=== PATIENT | female | born 1985 | race African-American/Black ===

== ENCOUNTER 2017-08-07 16:54 | Emergency (ER) | payer BC, OTHER ==
--- NOTE | 2017-08-07 17:31 | EDM.PDOC ---
ED HPI GENERAL MEDICAL PROBLEM - General Chief Complaint: Laceration Stated Complaint: SORE LT THUMB Time Seen by Provider: 08/07/17 16:56 Source of Information: Reports: Patient History Limitations: Reports: No Limitations - History of Present Illness INITIAL COMMENTS - FREE TEXT/NARRATIVE: HISTORY AND PHYSICAL: History of present illness: Patient is a 31-year-old female who presents to the emergency room today with complaints of a laceration to her left thumb. Laceration is from a knife that she was using while cutting up food yesterday around 10 AM. This laceration is over 24 hours old area and proximately 0.5 cm in length along the dorsal aspect of mid thumb. No current bleeding, sign of infection, or swelling. Patient is currently 5 months . Denies any related complications such as cramping, vaginal bleeding, discharge. Review of systems: As per history of present illness and below otherwise all systems reviewed and negative. Past medical history: As per history of present illness and as reviewed below otherwise noncontributory. Surgical history: As per history of present illness and as reviewed below otherwise noncontributory. Social history: No reported history of drug or alcohol abuse. Family history: As per history of present illness and as reviewed below otherwise noncontributory. Physical exam: Gen.: Well-developed and well-nourished 31-year-old female. Able to speak in full sentences without shortness of breath. Alert and oriented. HEENT: Atraumatic, normocephalic, pupils reactive, negative for conjunctival pallor or scleral icterus, mucous membranes moist, throat clear, neck supple, nontender, trachea midline. Lungs: Clear to auscultation, breath sounds equal bilaterally. Heart: S1S2, regular rate and rhythm Abdomen: Soft, nondistended, nontender. Negative for masses. Negative for costovertebral tenderness. Pelvis: Stable nontender. Genitourinary: Deferred. Rectal: Deferred. Skin: 0.25 cm laceration to the left dorsal aspect of the mid thumb. This laceration is greater than 24 hours old. Has no signs of infection at this time. Wound appears clean, superficial. Extremities: Atraumatic. Neurovascular unremarkable. Neuro: Awake, alert, oriented. Cranial nerves II through XII unremarkable. Cerebellum unremarkable. Motor and sensory unremarkable throughout. Exam nonfocal. Diagnostics: [] Therapeutics: Wound care, dressing. Impression: Laceration Plan: 1. Please monitor for signs of infection such as but not limited to redness and swelling, drainage from the site, fever or chills. Since this laceration is greater than 24 hours old unable to suture. No indication for an antibiotic at this time. 2. Follow-up with your primary care provider in the next 1-2 days. Return to the ED as needed as discussed. Definitive disposition and diagnosis as appropriate pending reevaluation and review of above. 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 ED EXAM, SKIN/RASH Exam: See Below (See dictation) Course - Vital Signs Last Recorded V/S: Last Vital Signs Temp 36.4 C 08/07/17 16:54 Pulse 89 08/07/17 16:54 Resp 18 08/07/17 16:54 BP 116/73 08/07/17 16:54 Pulse Ox 98 08/07/17 16:54 - Orders/Labs/Meds Orders: Active Orders 24 hr Category Date Time Status Communication Order [RC] STAT Care 08/07/17 17:33 Ordered Bacitracin [Bacitracin Oint 1 GM] Med 08/07/17 17:33 Once 1 dose TOP ONETIME ONE Departure - Departure Time of Disposition: 17:31 Disposition: Home, Self-Care 01 Clinical Impression: Laceration - Discharge Information Referrals: Yuniel Oakes MD [Primary Care Provider] - Forms: ED Department Discharge Additional Instructions: My general discharge The following information is given to patients seen in the emergency department who are being discharged to home. This information is to outline your options for follow-up care. We provide all patients seen in our emergency department with a follow-up referral. The need for follow-up, as well as the timing and circumstances, are variable depending upon the specifics of your emergency department visit. If you don't have a primary care physician on staff, we will provide you with a referral. We always advise you to contact your personal physician following an emergency department visit to inform them of the circumstance of the visit and for follow-up with them and/or the need for any referrals to a consulting specialist. The emergency department will also refer you to a specialist when appropriate. This referral assures that you have the opportunity for follow-up care with a specialist. All of these measure are taken in an effort to provide you with optimal care, which includes your follow-up. Under all circumstances we always encourage you to contact your private physician who remains a resource for coordinating your care. When calling for follow-up care, please make the office aware that this follow-up is from your recent emergency room visit. If for any reason you are refused follow-up, please contact the [facility] Emergency Department at and asked to speak to the emergency department charge nurse. [facility] [address] [place] [phone] 1. Please monitor for signs of infection such as but not limited to redness and swelling, drainage from the site, fever or chills. Since this laceration is greater than 24 hours old unable to suture. No indication for an antibiotic at this time. 2. Follow-up with your primary care provider in the next 1-2 days. Return to the ED as needed as discussed. - My Orders Last 24 Hours: My Active Orders 08/07/17 17:33 Communication Order [RC] STAT Bacitracin [Bacitracin Oint 1 GM] 1 dose TOP ONETIME ONE - Assessment/Plan Last 24 Hours: My Active Orders 08/07/17 17:33 Communication Order [RC] STAT Bacitracin [Bacitracin Oint 1 GM] 1 dose TOP ONETIME ONE
[2017-08-07] MEDS ORDERED: Bacitracin Oint 1 GM U/D Packet TOP ONE (17:33)
[2017-08-07 17:55] VITALS: BP 109/76
== END 2017-08-07 17:59 | disposition home or self-care (01) ==
LOC: MW.ED 16:54
DX: O9A.219 Injury, poisoning and certain other consequences of external causes complicating pregnancy, unspecified trimester (principal); S61.012A Laceration without foreign body of left thumb without damage to nail, initial encounter; W26.0XXA Contact with knife, initial encounter
CPT/HCPCS: 99282

== ENCOUNTER 2017-12-03 05:34 | Inpatient (IN) | payer BC ==
[2017-12-03] MEDS ORDERED: Sodium Chloride 0.9% 2.5 ML Syringe FLUSH PRN (05:42)
[2017-12-03] MEDS ORDERED: Sodium Chloride 0.9% 10 ML Syringe FLUSH PRN (05:42)
[2017-12-03] MEDS ORDERED: Oxytocin/0.9 % Sodium Chloride 30 UNIT/500 ML BAG IV SCH (05:45)
[2017-12-03] MEDS ORDERED: Lactated Ringers 1,000 ML IV SCH ×2 (05:45→07:00)
[2017-12-03] MEDS ORDERED: Citric Acid/Sodium Citrate Solution 30 ML Cup PO SCH (05:45)
[2017-12-03] MEDS ORDERED: Succinylcholine/Normal Saline 200 MG/10 ML Syringe ONE (06:23)
[2017-12-03] MEDS ORDERED: fentaNYL 250 MCG/5 ML SDV ONE (06:23)
[2017-12-03] MEDS ORDERED: Midazolam 1 MG/ML 2 ML SDV ONE (06:23)
[2017-12-03] MEDS ORDERED: ceFAZolin/Dextrose,Iso-Osmotic 2 GM/50 ML Duplex Bag IV ONE (06:23)
[2017-12-03] MEDS ORDERED: Methylergonovine 0.2 MG/1 ML Amp ONE ×2 (06:23→07:46)
[2017-12-03] MEDS ORDERED: Oxytocin 10 Units/1 ML SDV ONE ×4 (06:23→07:04)
[2017-12-03] MEDS ORDERED: Propofol 200 MG/20 ML SDV ONE (06:23)
[2017-12-03] MEDS ORDERED: Carboprost Tromethamine 250 MCG/1 ML Amp ONE (06:23)
[2017-12-03] MEDS ORDERED: Ondansetron 4 MG/2 ML SDV ONE (06:24)
--- NOTE | 2017-12-03 06:25 | PCM.PREANE ---
Preanesthetic Assessment - Procedure Proposed Procedure: Emergent d/t bleeding and placenta previa - Anesthesia/Transfusion/Family Hx Anesthesia History: No Prior Anesthesia Family History of Anesthesia Reaction: No Intubation History: Unknown - Review of Systems General: No Symptoms Pulmonary: No Symptoms Cardiovascular: No Symptoms Gastrointestinal: Abdominal Pain Neurological: No Symptoms Other: Reports: None - Physical Assessment NPO Status Date: 12/03/17 NPO Status Time: 00:00 (bicitra given on way to OR) ASA Class: 2E Mental Status: Alert & Oriented x3 (pt does not speak good turkmen - most questions answered by significant other) Airway Class: Mallampati = 3 (pt does not voluntarily open wide) Dentition: Reports: Normal Dentition Thyro-Mental Finger Breadths: 3 Mouth Opening Finger Breadths: 3 ROM/Head Extension: Full Lungs: Clear to Auscultation, Normal Respiratory Effort Cardiovascular: Regular Rate, Regular Rhythm - Lab Values: Laboratory Last Values WBC 6.80 K/uL (4.0-11.0) 12/03/17 05:52 RBC 4.41 M/uL (4.30-5.90) 12/03/17 05:52 Hgb 11.6 g/dL (12.0-16.0) L 12/03/17 05:52 Hct 34.8 % (36.0-46.0) L 12/03/17 05:52 MCV 78.9 fL (80.0-98.0) L 12/03/17 05:52 MCH 26.3 pg (27.0-32.0) L 12/03/17 05:52 MCHC 33.3 g/dL (31.0-37.0) 12/03/17 05:52 RDW Std Deviation 48.2 fl (28.0-62.0) 12/03/17 05:52 RDW Coeff of Klaus 17 % (11.0-15.0) H 12/03/17 05:52 Plt Count 175 K/uL (150-400) 12/03/17 05:52 Nucleated RBC % 0.0 /100WBC 12/03/17 05:52 Nucleated RBCs # 0 K/uL 12/03/17 05:52 - Allergies Allergies/Adverse Reactions: Allergies Allergy/AdvReac Type Severity Reaction Status Date / Time No Known Allergies Allergy Verified 08/07/17 16:58 - Blood Blood Available: Yes Product(s) Available: PRBC (4 units being T&C right now) - Anesthesia Plan Pre-Op Medication Ordered: Antacids - Acknowledgements Anesthesia Type Planned: General Anesthesia (per Dr dominguez's determination of the emergent situation, he requests she go to sleep) Pt an Appropriate Candidate for the Planned Anesthesia: Yes Alternatives and Risks of Anesthesia Discussed w Pt/Guardian: Yes Pt/Guardian Understands and Agrees with Anesthesia Plan: Yes PreAnesthesia Questionnaire - Past Health History Medical/Surgical History: Denies 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 Surgical 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 Female Surgical History: Reports: Section - SUBSTANCE USE Smoking Status *Q: Never Smoker Second Hand Smoke Exposure: No Recreational Drug Use History: No - HOME MEDS Home Medications: Home Meds Iron 1 tab PO DAILY 02/27/16 [History] Vit No.124/Iron/FA [ Vitamin Tablet] 1 tab PO DAILY 02/27/16 [ History] - CURRENT (IN HOUSE) MEDS Current Meds: Current Medications Citric Acid/Sodium Citrate (Bicitra Solution) 30 ml PO .ONCE NOEMI Lactated Ringer's (Ringers, Lactated) 1,000 mls @ 500 mls/hr IV .BOLUS NOEMI Oxytocin/Sodium Chloride (Oxytocin 30 Unit/500 Ml-Ns) 30 unit in 500 mls @ 250 mls/hr IV TITRATE NOEMI Sodium Chloride (Saline Flush) 10 ml FLUSH ASDIRECTED PRN PRN Reason: Keep Vein Open Sodium Chloride (Saline Flush) 2.5 ml FLUSH ASDIRECTED PRN PRN Reason: Keep Vein Open
[2017-12-03] MEDS ORDERED: ePHEDrine 50 MG/ML SDV ONE (06:28)
[2017-12-03] MEDS ORDERED: Octyl 2-Cyanoacrylate 1 Tube ONE (06:30)
[2017-12-03] MEDS ORDERED: HYDROmorphone 2 MG/ML SDV ONE (06:36)
--- NOTE | 2017-12-03 06:47 | PCM.LDHP ---
L&D History of Present Illness - General Date of Service: 12/03/17 Admit Problem/Dx: Patient Status Order with Admit Dx/Problem 12/03/17 05:43 Patient Status [ADT] Routine Admission Diagnosis/Problem Admission Diagnosis/Problem section Source of Information: Patient History Limitations: Reports: No Limitations - History of Present Illness Improves with: Reports: None Worsens with: Reports: None Associated Symptoms: Reports: N - Related Data Allergies/Adverse Reactions: Allergies Allergy/AdvReac Type Severity Reaction Status Date / Time No Known Allergies Allergy Verified 08/07/17 16:58 Home Medications: Home Meds Iron 1 tab PO DAILY 02/27/16 [History] Vit No.124/Iron/FA [ Vitamin Tablet] 1 tab PO DAILY 02/27/16 [ History] Past Medical History - Past Health History Medical/Surgical History: Denies 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 Female Surgical History: Reports: Section Social & Family History - Family History Family Medical History: Noncontributory - Tobacco Use Smoking Status *Q: Never Smoker Second Hand Smoke Exposure: No - Recreational Drug Use Recreational Drug Use: No H&P Review of Systems - Review of Systems: Review Of Systems: See Below General: Reports: No Symptoms HEENT: Reports: No Symptoms Pulmonary: Reports: No Symptoms Cardiovascular: Reports: No Symptoms Gastrointestinal: Reports: No Symptoms Genitourinary: Reports: No Symptoms Musculoskeletal: Reports: No Symptoms Skin: Reports: No Symptoms Psychiatric: Reports: No Symptoms Neurological: Reports: No Symptoms Hematologic/Lymphatic: Reports: No Symptoms Immunologic: Reports: No Symptoms L&D Exam - Exam Exam: See Below - OB Specific Fundal Height In cm: 38 Contraction Intensity: Mild to Moderate Movement: Active Heart Tones: Present Presentation: Vertex - Exam General: Alert, Oriented HEENT: PERRLA, Conjunctiva Clear, EACs Clear, EOMI, Hearing Intact, Mucosa Moist & [place], Nares Patent, Normal Nasal Septum, Posterior Pharynx Clear, TMs Clear Neck: Supple, Trachea Midline Lungs: Clear to Auscultation, Normal Respiratory Effort Cardiovascular: Regular Rate, Regular Rhythm GI/Abdominal Exam: Normal Bowel Sounds, Soft, Non-Tender, No Organomegaly, No Distention, No Abnormal Bruit, No Mass, Pelvis Stable Rectal Exam: Normal Exam, Normal Rectal Tone Genitourinary: Normal external exam, Normal bimanual exam, Normal speculum exam Back Exam: Normal Inspection, Full Range of Motion Extremities: Normal Inspection, Normal Range of Motion, Non-Tender, No Pedal Edema, Normal Capillary Refill Skin: Warm, Dry, Intact Neurological: Cranial Nerves Intact, Reflexes Equal Bilateral Psychiatric: Alert, Normal Affect, Normal Mood - Patient Data Lab Results Last 24 hrs: Laboratory Results - last 24 hr 12/03/17 12/03/17 Range/Units 05:52 05:52 WBC 6.80 (4.0-11.0) K/uL RBC 4.41 (4.30-5.90) M/uL Hgb 11.6 L (12.0-16.0) g/dL Hct 34.8 L (36.0-46.0) % MCV 78.9 L (80.0-98.0) fL MCH 26.3 L (27.0-32.0) pg MCHC 33.3 (31.0-37.0) g/dL RDW Std Deviation 48.2 (28.0-62.0) fl RDW Coeff of Klaus 17 H (11.0-15.0) % Plt Count 175 (150-400) K/uL Nucleated RBC % 0.0 /100WBC Nucleated RBCs # 0 K/uL Blood Type O POSITIVE Antibody Screen NEGATIVE Crossmatch See Detail Result Diagrams: 12/03/17 05:52 Problem List Initiated/Reviewed/Updated: Yes Orders Last 24hrs: Active Orders 24 hr Category Date Time Status Patient Status [ADT] Routine ADT 12/03/17 05:43 Active Non Stress Test [RC] PER UNIT ROUTINE Care 12/03/17 05:43 Active Notify Provider Vital Signs [RC] PRN Care 12/03/17 05:45 Active Procedure Site Prep Instruct [RC] ASDIRECTED Care 12/03/17 05:43 Active Up ad Francesca [RC] ASDIRECTED Care 12/03/17 05:43 Active Verify Patient Consent Obtain [RC] ASDIRECTED Care 12/03/17 05:43 Active Vital Signs [RC] PER UNIT ROUTINE Care 12/03/17 05:43 Active RED BLOOD CELLS LP [BBK] Urgent Lab 12/03/17 05:52 Results TYPE AND SCREEN [BBK] Urgent Lab 12/03/17 05:52 Results Citric Acid/Sodium Citrate [Bicitra Solution] Med 12/03/17 05:45 Active 30 ml PO .ONCE Lactated Ringers [Ringers, Lactated] 1,000 ml Med 12/03/17 05:45 Active IV .BOLUS Oxytocin/0.9 % Sodium Chloride [Oxytocin 30 Unit/500 ML Med 12/03/17 05:45 Active -NS] 30 unit in 500 ml IV TITRATE Sodium Chloride 0.9% [Saline Flush] Med 12/03/17 05:42 Active 10 ml FLUSH ASDIRECTED PRN Sodium Chloride 0.9% [Saline Flush] Med 12/03/17 05:42 Active 2.5 ml FLUSH ASDIRECTED PRN Peripheral IV Insertion Adult [OM.PC] Routine Oth 12/03/17 05:43 Ordered Schedule Procedure [COMM] Per Unit Routine Oth 12/03/17 05:43 Ordered Resuscitation Status Routine Resus Stat 12/03/17 05:42 Ordered Medication Orders Citric Acid/Sodium Citrate (Bicitra Solution) 30 ml PO .ONCE NOEMI Lactated Ringer's (Ringers, Lactated) 1,000 mls @ 500 mls/hr IV .BOLUS NOEMI Oxytocin/Sodium Chloride (Oxytocin 30 Unit/500 Ml-Ns) 30 unit in 500 mls @ 250 mls/hr IV TITRATE NOEMI Sodium Chloride (Saline Flush) 10 ml FLUSH ASDIRECTED PRN PRN Reason: Keep Vein Open Sodium Chloride (Saline Flush) 2.5 ml FLUSH ASDIRECTED PRN PRN Reason: Keep Vein Open Assessment/Plan Comment:: IUP 36+ Plasenta previa actively bleeding had previous C/section we will do emergancy repeat C/Section
[2017-12-03] MEDS ORDERED: Bisacodyl 10 MG Supp RECTAL PRN (06:49)
[2017-12-03] MEDS ORDERED: diphenhydrAMINE 50 MG/ML SDV IVPUSH PRN (06:49)
[2017-12-03] MEDS ORDERED: Lanolin 100% Cream 7 GM Tube TOP PRN (06:49)
[2017-12-03] MEDS ORDERED: Acetaminophen/oxyCODONE 325-5 MG Tab PO PRN (06:49)
[2017-12-03] MEDS ORDERED: Ondansetron 4 MG/2 ML SDV IV PRN (06:49)
--- NOTE | 2017-12-03 06:49 | PCM.OPNOTE ---
- General Post-Op/Procedure Note Date of Surgery/Procedure: 12/03/17 Operative Procedure(s): Emergancy repeat C/ section. IUP36+ Plasenta previa. Post-Op Diagnosis: Same Anesthesia Technique: General ET Tube Primary Surgeon: Yuniel Oakes [employer] Vehicle [employer] Interpreter: Clarisse Bledsoe EBL in mLs: 900 Complications: None Condition: Good
[2017-12-03] MEDS ORDERED: fentaNYL 100 MCG/2 ML SDV IVPUSH PRN (06:53)
[2017-12-03] MEDS ORDERED: Ketorolac 30 MG/ML SDV IVPUSH SCH (07:00)
--- NOTE | 2017-12-03 07:54 | OR ---
SURGEON: uYniel Oakes MD DATE OF PROCEDURE: 12/03/2017 PREOPERATIVE DIAGNOSES: Intrauterine 36+ weeks, previous section, and bleeding placenta previa. POSTOPERATIVE DIAGNOSES: Intrauterine 36+ weeks, previous section, and bleeding placenta previa. OPERATION PERFORMED: Emergency low transverse section under general anesthesia. TONG SETTER: Clarisse Bledsoe CNM ANESTHESIA: Francine Campbell and Ambar Minaya ESTIMATED BLOOD LOSS: 1800 mL. COMPLICATIONS: None. FINDING: Male fetus. score reported to be 8 and 9. The patient had a posterior placenta previa. Normal uterus, tubes, and ovary. INDICATION FOR SURGERY: This patient is 32. She had a previous section. She is followed in our clinic. She is known to have posterior placenta previa. She is transported to Labor and Delivery today in active bleeding. At the time of the admission to Labor and Delivery, her vital sign was stable; however, she was trickling and bleeding and heart rate was normal, and we immediately called for emergency sections. We did type and cross for 4 units, and we transported the patient to the OR for emergency section. The hydrographic engineer, Dr. Noland, is notified and she is present at the time of the section. PROCEDURE IN DETAIL: The patient was brought to the OR, properly identified. The patient was prepped and draped in sterile fashion as usual with a Barkley catheter in the bladder and then general anesthesia administered and then low transverse skin incision above the scar is done, and the Nemo fascia and rectus fascia were opened in the direction of the incision. The 2 recti muscles were then peritoneal cavities entered. Bladder flap was raised in the usual manner pushing the bladder away from the lower uterine segment and then low transverse uterine incision was done. The fetus was in a vertex position, delivered and cried immediately, handed to the hydrographic engineer, Dr. Noland, who was present at the time of the delivery. Later on, the score reported to be 8 and 9. The placenta is confirmed to be posterior previa, and it was easily and removed without any problem and then repair of the lower uterine segment was done with 2-0 Vicryl continuous interlocking for hemostasis and then reperitonealization done with 3-0 Vicryl continuous then the peritoneal cavity evacuated completely from all blood and blood clot and closed with 3-0 Vicryl continuous. The rectus fascia was closed with #1 PDS double strand continuous then attention was paid at this time to the old scar, and the old scar did have rather large keloid, so we excised it without any problems and then the Nemo fascia after that is closed with 3-0 Vicryl and the skin closed with 3-0 Vicryl on a Michael needle in a subcuticular fashion. Instrument and sponge counts were correct. The patient tolerated the procedure well and went to recovery room in stable general condition. ALISHA MURRELL /[id number] [id number]
[2017-12-03] MEDS ORDERED: Tranexamic Acid 1,000 MG in Sodium Chloride 0.9% 100 ML IV ONE (07:57)
[2017-12-03] MEDS ORDERED: Calcium Gluconate 10% 1 GM/10 ML SDV IV ONE (08:41)
[2017-12-03] MEDS ORDERED: Furosemide 40 MG/4 ML VIAL IVPUSH ONE (08:41)
[2017-12-03 09:13] LABS: CHLORIDE,CL 108 mmol/L (98-110); SODIUM,NA 137 mmol/L (136-146)
--- NOTE | 2017-12-03 09:14 | PCM.SN ---
- Free Text/Narrative Note: upon moving patient to bed large amount of blood noted on the bed approx 1000 ml. Pt to PACU hypotensive medications given for BP support. Uterine massage - unable to palpate uterus, Ambar Minaya assist to palpate. OB nurse Rasheed called for assistance. Large amount of blood noted on Pads. Tachycardic and hypotensive. Dr Oakes called. 2 units of PRBC called for and infused. See additional orders from Asif Minaya and Dr Oakes and PACU charting. Pt stabalized in PACU and will transfer to ICU
--- NOTE | 2017-12-03 09:24 | PCM.POSTAN ---
POST ANESTHESIA ASSESSMENT - MENTAL STATUS Mental Status: Alert, Somnolent - VITAL SIGNS Pulse Rate: 132 SaO2: 100 Resp Rate: 16 Blood Pressure: 105/66 - RESPIRATORY Respiratory Status: Respiratory Rate WNL, Airway Patent, O2 Saturation Stable, Supplemental Oxygen - CARDIOVASCULAR CV Status: Pulse Rate WNL, Blood Pressure Stable - GASTROINTESTINAL GI Status: No Symptoms - PAIN Pain Score: 0 - POST OP HYDRATION Hydration Status: Adequate & Stable - OBSERVATIONS Free Text/Narrative:: transferring to ICU
[2017-12-03] MEDS ORDERED: Sodium Chloride 0.9% 2,000 ML IV STA (10:00)
[2017-12-03] MEDS ORDERED: Calcium Gluconate 10% 1 GM/10 ML SDV IVPUSH ONE (10:20)
[2017-12-03] MEDS: Sodium Chloride 0.9% 1,000 ML IV SCH ×2 (11:54→18:25)
[2017-12-03] MEDS ORDERED: Sodium Chloride 0.9% 1,000 ML IV SCH (12:00)
[2017-12-03 12:44] LABS: CHLORIDE,CL 114 mmol/L (98-110); SODIUM,NA 139 mmol/L (136-146)
[2017-12-03] MEDS: Docusate Sodium 100 MG Cap PO SCH ×2 (13:05→21:01)
[2017-12-03] MEDS: Acetaminophen 325 MG Tab PO PRN ×2 (14:43→19:43)
--- NOTE | 2017-12-03 16:01 | CR ---
EXAM DATE: 12/03/17 PATIENT'S AGE: 32 Patient: RUFUS SAWYER Facility: [place], [place] Site . Site : 1985 Study: XRay Chest [id number]/9/2018 9:12:38 AM Ordering Physician: Champ Brice Final Report: INDICATION: S/P MASSIVE BLOOD TRANSFUSION. STATUS POST . TECHNIQUE: Chest 1 view. COMPARISON: None FINDINGS: Cardiovascular and mediastinum: Heart size and vasculature are normal in caliber and appearance. Mediastinum is within normal limits. Lungs and pleural space: Lungs are clear. No sign of infiltrate or mass. No sign of pleural effusion. No pneumothorax. Bones and soft tissues: No significant findings. IMPRESSION: Unremarkable chest. Dictated by: Tom Anna MD @ 12/03/2017 09:30:15 (Electronic Signature) Report Signed by Proxy. RUSSELL
[2017-12-03] MEDS: Acetaminophen/oxyCODONE 325-5 MG Tab PO PRN (23:35)
[2017-12-04] MEDS: Sodium Chloride 0.9% 1,000 ML IV SCH ×2 (01:13→07:57)
[2017-12-04] MEDS: Acetaminophen/oxyCODONE 325-5 MG Tab PO PRN ×2 (04:27→20:56)
[2017-12-04 06:07] LABS: CHLORIDE,CL 111 mmol/L (98-110); SODIUM,NA 137 mmol/L (136-146)
[2017-12-04] MEDS: Acetaminophen 325 MG Tab PO PRN ×2 (08:29→16:14)
[2017-12-04] MEDS: Docusate Sodium 100 MG Cap PO SCH ×2 (08:29→20:56)
[2017-12-04] MEDS ORDERED: Sodium Chloride 0.9% 1,000 ML IV SCH (11:15)
--- NOTE | 2017-12-04 11:20 | PCM.SURGPN ---
- General Info Date of Service: 12/04/17 POD#: 1 Functional Status: Reports: Pain Controlled - Review of Systems General: Reports: No Symptoms HEENT: Reports: No Symptoms Pulmonary: Reports: No Symptoms Cardiovascular: Reports: No Symptoms Gastrointestinal: Reports: No Symptoms Genitourinary: Reports: No Symptoms Musculoskeletal: Reports: No Symptoms Skin: Reports: No Symptoms Neurological: Reports: No Symptoms Psychiatric: Reports: No Symptoms - Patient Data Vitals - Most Recent: Last Vital Signs Temp 36.6 C 12/04/17 08:00 Pulse 87 12/04/17 10:00 Resp 21 H 12/04/17 10:00 BP 134/69 12/04/17 10:00 Pulse Ox 95 12/04/17 10:00 Weight - Most Recent: 83.007 kg I&O - Last 24 Hours: Intake & Output 12/03/17 12/04/17 12/04/17 22:59 06:59 14:59 Intake Total 4262 1180 50 Output Total 655 530 375 Balance 3607 650 -325 Lab Results Last 24 Hrs: Laboratory Results - last 24 hr 12/03/17 12/03/17 12/03/17 Range/Units 05:52 05:52 05:52 WBC (4.0-11.0) K/uL RBC (4.30-5.90) M/uL Hgb (12.0-16.0) g/dL Hct (36.0-46.0) % MCV (80.0-98.0) fL MCH (27.0-32.0) pg MCHC (31.0-37.0) g/dL RDW Std Deviation (28.0-62.0) fl RDW Coeff of Klaus (11.0-15.0) % Plt Count (150-400) K/uL MPV (7.40-12.00) fL Neut % (Auto) (48.0-80.0) % Lymph % (Auto) (16.0-40.0) % Stanly % (Auto) (0.0-15.0) % Eos % (Auto) (0.0-7.0) % Baso % (Auto) (0.0-1.5) % Neut # (Auto) (1.4-5.7) K/uL Lymph # (Auto) (0.6-2.4) K/uL Stanly # (Auto) (0.0-0.8) K/uL Eos # (Auto) (0.0-0.7) K/uL Baso # (Auto) (0.0-0.1) K/uL Add Manual Diff Neutrophils % (Manual) (48.0-80.0) % Band Neutrophils % % Lymphocytes % (Manual) (16.0-40.0) % Monocytes % (Manual) (0.0-15.0) % Myelocytes % % Nucleated RBC % /100WBC Absolute Seg Neuts (1.4-5.7) Band Neutrophils # Lymphocytes # (Manual) (0.6-2.4) Monocytes # (Manual) (0.0-0.8) Absolute Myelocytes Nucleated RBCs # K/uL INR APTT (18.6-31.3) SEC Fibrinogen (215-411) mg/dL Sodium (136-146) mmol/L Potassium (3.5-5.1) mmol/L Chloride (98-110) mmol/L Carbon Dioxide (21-31) mmol/L BUN (6.0-23.0) mg/dL Creatinine (0.6-1.5) mg/dL Est Cr Clr Drug Dosing mL/min Estimated GFR (MDRD) ml/min Glucose (60-110) mg/dL Calcium (8.8-10.8) mg/dL Total Bilirubin (0.1-1.5) mg/dL AST (5-40) IU/L ALT (8-54) IU/L Alkaline Phosphatase (40-150) Total Protein (6.0-8.0) g/dL Albumin (3.5-5.0) g/dL Globulin (2.0-3.5) g/dL Albumin/Globulin Ratio (1.3-2.8) Blood Type O POSITIVE Cancelled Antibody Screen NEGATIVE Cancelled Crossmatch See Detail See Detail See Detail 12/03/17 12/03/17 12/03/17 Range/Units 05:52 12:10 12:10 WBC (4.0-11.0) K/uL RBC (4.30-5.90) M/uL Hgb (12.0-16.0) g/dL Hct (36.0-46.0) % MCV (80.0-98.0) fL MCH (27.0-32.0) pg MCHC (31.0-37.0) g/dL RDW Std Deviation (28.0-62.0) fl RDW Coeff of Klaus (11.0-15.0) % Plt Count (150-400) K/uL MPV (7.40-12.00) fL Neut % (Auto) (48.0-80.0) % Lymph % (Auto) (16.0-40.0) % Stanly % (Auto) (0.0-15.0) % Eos % (Auto) (0.0-7.0) % Baso % (Auto) (0.0-1.5) % Neut # (Auto) (1.4-5.7) K/uL Lymph # (Auto) (0.6-2.4) K/uL Stanly # (Auto) (0.0-0.8) K/uL Eos # (Auto) (0.0-0.7) K/uL Baso # (Auto) (0.0-0.1) K/uL Add Manual Diff Neutrophils % (Manual) (48.0-80.0) % Band Neutrophils % % Lymphocytes % (Manual) (16.0-40.0) % Monocytes % (Manual) (0.0-15.0) % Myelocytes % % Nucleated RBC % /100WBC Absolute Seg Neuts (1.4-5.7) Band Neutrophils # Lymphocytes # (Manual) (0.6-2.4) Monocytes # (Manual) (0.0-0.8) Absolute Myelocytes Nucleated RBCs # K/uL INR 1.21 APTT (18.6-31.3) SEC Fibrinogen 112 L (215-411) mg/dL Sodium 139 (136-146) mmol/L Potassium 4.0 (3.5-5.1) mmol/L Chloride 114 H (98-110) mmol/L Carbon Dioxide 20 L (21-31) mmol/L BUN 11 (6.0-23.0) mg/dL Creatinine 0.7 (0.6-1.5) mg/dL Est Cr Clr Drug Dosing 95.44 mL/min Estimated GFR (MDRD) > 60.0 ml/min Glucose 135 H (60-110) mg/dL Calcium 7.3 L (8.8-10.8) mg/dL Total Bilirubin (0.1-1.5) mg/dL AST (5-40) IU/L ALT (8-54) IU/L Alkaline Phosphatase (40-150) Total Protein (6.0-8.0) g/dL Albumin (3.5-5.0) g/dL Globulin (2.0-3.5) g/dL Albumin/Globulin Ratio (1.3-2.8) Blood Type Antibody Screen Crossmatch See Detail 12/03/17 12/03/17 12/03/17 Range/Units 12:10 12:10 16:05 WBC 10.45 (4.0-11.0) K/uL RBC 2.43 L (4.30-5.90) M/uL Hgb 7.7 L 6.9 L (12.0-16.0) g/dL Hct 22.2 L 19.8 L (36.0-46.0) % MCV 81.5 (80.0-98.0) fL MCH 28.4 (27.0-32.0) pg MCHC 34.8 (31.0-37.0) g/dL RDW Std Deviation 45.2 (28.0-62.0) fl RDW Coeff of Klaus 15 (11.0-15.0) % Plt Count 45 L 102 L (150-400) K/uL MPV 9.50 (7.40-12.00) fL Neut % (Auto) (48.0-80.0) % Lymph % (Auto) (16.0-40.0) % Stanly % (Auto) (0.0-15.0) % Eos % (Auto) (0.0-7.0) % Baso % (Auto) (0.0-1.5) % Neut # (Auto) (1.4-5.7) K/uL Lymph # (Auto) (0.6-2.4) K/uL Stanly # (Auto) (0.0-0.8) K/uL Eos # (Auto) (0.0-0.7) K/uL Baso # (Auto) (0.0-0.1) K/uL Add Manual Diff YES Neutrophils % (Manual) 49 (48.0-80.0) % Band Neutrophils % 37 % Lymphocytes % (Manual) 8 L (16.0-40.0) % Monocytes % (Manual) 5 (0.0-15.0) % Myelocytes % 1 % Nucleated RBC % 0.4 /100WBC Absolute Seg Neuts 5.1 (1.4-5.7) Band Neutrophils # 3.9 Lymphocytes # (Manual) 0.8 (0.6-2.4) Monocytes # (Manual) 0.5 (0.0-0.8) Absolute Myelocytes 0.1 Nucleated RBCs # 0 K/uL INR APTT (18.6-31.3) SEC Fibrinogen (215-411) mg/dL Sodium (136-146) mmol/L Potassium (3.5-5.1) mmol/L Chloride (98-110) mmol/L Carbon Dioxide (21-31) mmol/L BUN (6.0-23.0) mg/dL Creatinine (0.6-1.5) mg/dL Est Cr Clr Drug Dosing mL/min Estimated GFR (MDRD) ml/min Glucose (60-110) mg/dL Calcium (8.8-10.8) mg/dL Total Bilirubin (0.1-1.5) mg/dL AST (5-40) IU/L ALT (8-54) IU/L Alkaline Phosphatase (40-150) Total Protein (6.0-8.0) g/dL Albumin (3.5-5.0) g/dL Globulin (2.0-3.5) g/dL Albumin/Globulin Ratio (1.3-2.8) Blood Type Antibody Screen Crossmatch 12/03/17 12/03/17 12/03/17 Range/Units 16:05 22:16 22:16 WBC 8.83 (4.0-11.0) K/uL RBC 2.99 L (4.30-5.90) M/uL Hgb 8.6 L (12.0-16.0) g/dL Hct 24.5 L (36.0-46.0) % MCV 81.9 (80.0-98.0) fL MCH 28.8 (27.0-32.0) pg MCHC 35.1 (31.0-37.0) g/dL RDW Std Deviation 45.3 (28.0-62.0) fl RDW Coeff of Klaus 15 (11.0-15.0) % Plt Count 87 L (150-400) K/uL MPV 10.60 (7.40-12.00) fL Neut % (Auto) 77.4 (48.0-80.0) % Lymph % (Auto) 15.4 L (16.0-40.0) % Stanly % (Auto) 7.2 (0.0-15.0) % Eos % (Auto) 0.0 (0.0-7.0) % Baso % (Auto) 0.0 (0.0-1.5) % Neut # (Auto) 6.8 H (1.4-5.7) K/uL Lymph # (Auto) 1.4 (0.6-2.4) K/uL Stanly # (Auto) 0.6 (0.0-0.8) K/uL Eos # (Auto) 0.0 (0.0-0.7) K/uL Baso # (Auto) 0.0 (0.0-0.1) K/uL Add Manual Diff Neutrophils % (Manual) (48.0-80.0) % Band Neutrophils % % Lymphocytes % (Manual) (16.0-40.0) % Monocytes % (Manual) (0.0-15.0) % Myelocytes % % Nucleated RBC % 0.0 /100WBC Absolute Seg Neuts (1.4-5.7) Band Neutrophils # Lymphocytes # (Manual) (0.6-2.4) Monocytes # (Manual) (0.0-0.8) Absolute Myelocytes Nucleated RBCs # 0 K/uL INR 1.07 0.98 APTT 32.6 H 31.6 H (18.6-31.3) SEC Fibrinogen 177 L 242 (215-411) mg/dL Sodium (136-146) mmol/L Potassium (3.5-5.1) mmol/L Chloride (98-110) mmol/L Carbon Dioxide (21-31) mmol/L BUN (6.0-23.0) mg/dL Creatinine (0.6-1.5) mg/dL Est Cr Clr Drug Dosing mL/min Estimated GFR (MDRD) ml/min Glucose (60-110) mg/dL Calcium (8.8-10.8) mg/dL Total Bilirubin (0.1-1.5) mg/dL AST (5-40) IU/L ALT (8-54) IU/L Alkaline Phosphatase (40-150) Total Protein (6.0-8.0) g/dL Albumin (3.5-5.0) g/dL Globulin (2.0-3.5) g/dL Albumin/Globulin Ratio (1.3-2.8) Blood Type Antibody Screen Crossmatch 12/04/17 12/04/17 12/04/17 Range/Units 05:35 05:35 05:35 WBC 7.02 (4.0-11.0) K/uL RBC 2.59 L (4.30-5.90) M/uL Hgb 7.4 L (12.0-16.0) g/dL Hct 21.0 L (36.0-46.0) % MCV 81.1 (80.0-98.0) fL MCH 28.6 (27.0-32.0) pg MCHC 35.2 (31.0-37.0) g/dL RDW Std Deviation 45.4 (28.0-62.0) fl RDW Coeff of Klaus 15 (11.0-15.0) % Plt Count 81 L (150-400) K/uL MPV 10.30 (7.40-12.00) fL Neut % (Auto) 78.1 (48.0-80.0) % Lymph % (Auto) 14.1 L (16.0-40.0) % Stanly % (Auto) 7.7 (0.0-15.0) % Eos % (Auto) 0.0 (0.0-7.0) % Baso % (Auto) 0.1 (0.0-1.5) % Neut # (Auto) 5.5 (1.4-5.7) K/uL Lymph # (Auto) 1.0 (0.6-2.4) K/uL Stanly # (Auto) 0.5 (0.0-0.8) K/uL Eos # (Auto) 0.0 (0.0-0.7) K/uL Baso # (Auto) 0.0 (0.0-0.1) K/uL Add Manual Diff Neutrophils % (Manual) (48.0-80.0) % Band Neutrophils % % Lymphocytes % (Manual) (16.0-40.0) % Monocytes % (Manual) (0.0-15.0) % Myelocytes % % Nucleated RBC % 0.0 /100WBC Absolute Seg Neuts (1.4-5.7) Band Neutrophils # Lymphocytes # (Manual) (0.6-2.4) Monocytes # (Manual) (0.0-0.8) Absolute Myelocytes Nucleated RBCs # 0 K/uL INR APTT (18.6-31.3) SEC Fibrinogen 289 (215-411) mg/dL Sodium 137 (136-146) mmol/L Potassium 3.9 (3.5-5.1) mmol/L Chloride 111 H (98-110) mmol/L Carbon Dioxide 21 (21-31) mmol/L BUN 10 (6.0-23.0) mg/dL Creatinine 0.6 (0.6-1.5) mg/dL Est Cr Clr Drug Dosing 111.35 mL/min Estimated GFR (MDRD) > 60.0 ml/min Glucose 130 H (60-110) mg/dL Calcium 7.4 L (8.8-10.8) mg/dL Total Bilirubin 1.8 H (0.1-1.5) mg/dL AST 42 H (5-40) IU/L ALT 14 (8-54) IU/L Alkaline Phosphatase 59 (40-150) Total Protein 3.8 L (6.0-8.0) g/dL Albumin 2.0 L (3.5-5.0) g/dL Globulin 1.8 L (2.0-3.5) g/dL Albumin/Globulin Ratio 1.1 L (1.3-2.8) Blood Type Antibody Screen Crossmatch Med Orders - Current: Current Medications Acetaminophen (Tylenol) 325 - 650 mg PO Q4H PRN PRN Reason: Pain Last Admin: 12/04/17 08:29 Dose: 650 mg Bisacodyl (Dulcolax) 10 mg RECTAL .ONCE PRN PRN Reason: Constipation Citric Acid/Sodium Citrate (Bicitra Solution) 30 ml PO .ONCE NOEMI Diphenhydramine HCl (Benadryl) 25 mg IVPUSH Q6H PRN PRN Reason: Itching or Nausea Docusate Sodium (Colace) 100 mg PO BID [facility] Last Admin: 12/04/17 08:29 Dose: 100 mg Emollient Ointment (Lansinoh Hpa) 0 gm TOP ASDIRECTED PRN PRN Reason: Sore Nipples Fentanyl (Sublimaze) 50 mcg IVPUSH SEECOMMENT PRN PRN Reason: Pain (moderate 4-6) Lactated Ringer's (Ringers, Lactated) 1,000 mls @ 500 mls/hr IV .BOLUS NOEMI Oxytocin/Sodium Chloride (Oxytocin 30 Unit/500 Ml-Ns) 30 unit in 500 mls @ 250 mls/hr IV TITRATE NOEMI Lactated Ringer's (Ringers, Lactated) 1,000 mls @ 125 mls/hr IV ASDIRECTED NOEMI Sodium Chloride (Normal Saline) 1,000 mls @ 10 mls/hr IV ASDIRECTED [facility] Ibuprofen (Motrin) 800 mg PO Q8H PRN PRN Reason: mild pain or fever Ondansetron HCl (Zofran) 4 mg IV Q4H PRN PRN Reason: Nausea/Vomiting Oxycodone/Acetaminophen (Percocet 325-5 Mg) 1 tab PO Q4H PRN PRN Reason: Pain (moderate 4-6) Last Admin: 12/04/17 04:27 Dose: 1 tab Oxycodone/Acetaminophen (Percocet 325-5 Mg) 2 tab PO Q4H PRN PRN Reason: Pain (moderate 4-6) Sodium Chloride (Saline Flush) 10 ml FLUSH ASDIRECTED PRN PRN Reason: Keep Vein Open Sodium Chloride (Saline Flush) 2.5 ml FLUSH ASDIRECTED PRN PRN Reason: Keep Vein Open Discontinued Medications Calcium Gluconate (Calcium Gluconate) 1 gm IV ONETIME ONE Stop: 12/03/17 08:42 Last Admin: 12/03/17 08:44 Dose: 1 gm Calcium Gluconate (Calcium Gluconate) 1 gm IVPUSH ONETIME ONE Stop: 12/03/17 10:21 Last Admin: 12/03/17 11:07 Dose: 1 gm Carboprost Tromethamine (Hemabate Ds) Confirm Administered Dose 250 mcg .ROUTE .STK-MED ONE Stop: 12/03/17 06:24 Ephedrine Sulfate (Ephedrine Sulfate) Confirm Administered Dose 50 mg .ROUTE .STK-MED ONE Stop: 12/03/17 06:29 Fentanyl (Sublimaze) Confirm Administered Dose 250 mcg .ROUTE .STK-MED ONE Stop: 12/03/17 06:24 Furosemide (Lasix) 20 mg IVPUSH NOW ONE Stop: 12/03/17 08:42 Last Admin: 12/03/17 08:43 Dose: 20 mg Hydromorphone HCl (Dilaudid) Confirm Administered Dose 2 mg .ROUTE .STK-MED ONE Stop: 12/03/17 06:37 Tranexamic Acid 1,000 mg/ (Sodium Chloride) 110 mls @ 600 mls/hr IV ONETIME ONE Stop: 12/03/17 08:07 Last Admin: 12/03/17 14:03 Dose: Not Given Tranexamic Acid 1,000 mg/ (Sodium Chloride) 260 mls @ 32.5 mls/hr IV ONETIME ONE Stop: 12/03/17 18:44 Last Admin: 12/03/17 10:48 Dose: 32.5 mls/hr Sodium Chloride (Normal Saline) 2,000 mls @ 999 mls/hr IV NOW STA Stop: 12/03/17 12:00 Last Admin: 12/03/17 11:00 Dose: 999 mls/hr Sodium Chloride (Normal Saline) 1,000 mls @ 150 mls/hr IV ASDIRECTED [facility] Last Admin: 12/04/17 07:57 Dose: 150 mls/hr Sodium Chloride (Normal Saline) 1,000 mls @ 150 mls/hr IV ASDIRECTED [facility] Ketorolac Tromethamine (Toradol) 30 mg IVPUSH Q6H [facility] Stop: 12/04/17 07:01 Last Admin: 12/03/17 07:13 Dose: 30 mg Methylergonovine Maleate (Methergine) Confirm Administered Dose 0.2 mg .ROUTE .STK-MED ONE Stop: 12/03/17 06:24 Methylergonovine Maleate (Methergine) Confirm Administered Dose 0.2 mg .ROUTE .STK-MED ONE Stop: 12/03/17 07:47 Midazolam HCl (Versed 1 Mg/Ml) Confirm Administered Dose 2 mg .ROUTE .STK-MED ONE Stop: 12/03/17 06:24 Octyl Cyanoacrylate (Dermabond Advance) Confirm Administered Dose 1 applic .ROUTE .STK-MED ONE Stop: 12/03/17 06:31 Ondansetron HCl (Zofran) Confirm Administered Dose 4 mg .ROUTE .STK-MED ONE Stop: 12/03/17 06:25 Oxytocin (Pitocin) Confirm Administered Dose 10 unit .ROUTE .STK-MED ONE Stop: 12/03/17 06:24 Oxytocin (Pitocin) Confirm Administered Dose 10 unit .ROUTE .STK-MED ONE Stop: 12/03/17 06:24 Oxytocin (Pitocin) Confirm Administered Dose 10 unit .ROUTE .STK-MED ONE Stop: 12/03/17 06:24 Oxytocin (Pitocin) Confirm Administered Dose 20 unit .ROUTE .STK-MED ONE Stop: 12/03/17 07:05 Propofol (Diprivan 20 Ml) Confirm Administered Dose 200 mg .ROUTE .STK-MED ONE Stop: 12/03/17 06:24 Succinylcholine Chloride (Succinylcholine In Ns Pf) Confirm Administered Dose 200 mg .ROUTE .STK-MED ONE Stop: 12/03/17 06:24 Tranexamic Acid (Cyklokapron) Confirm Administered Dose 1,000 mg .ROUTE .STK- MED ONE Stop: 12/03/17 07:44 Tranexamic Acid (Cyklokapron) 1,000 mg IV ONETIME ONE Stop: 12/03/17 08:01 Last Admin: 12/03/17 13:57 Dose: 1,000 mg - Exam Wound/Incisions: Healing Well General: Alert, Oriented HEENT: Pupils Equal Neck: Supple Lungs: Clear to Auscultation, Normal Respiratory Effort Cardiovascular: Regular Rate, Regular Rhythm GI/Abdominal Exam: Normal Bowel Sounds, Soft, Non-Tender, No Organomegaly, No Distention, No Abnormal Bruit, No Mass, Pelvis Stable Extremities: Normal Inspection, Normal Range of Motion, Non-Tender, No Pedal Edema, Normal Capillary Refill Skin: Warm, Dry, Intact Neurological: No New Focal Deficit Psy/Mental Status: Alert, Normal Affect, Normal Mood - Problem List Review Problem List Initiated/Reviewed/Updated: Yes - My Orders Last 24 Hours: Active Orders 24 hr Category Date Time Status Clear Liquid Diet [DIET] Diet 12/04/17 Lunch Active HEMOGLOBIN/HEMATOCRIT,HH [HEME] Routine Lab 12/05/17 05:00 Ordered Acetaminophen [Tylenol] Med 12/03/17 14:04 Active 325 - 650 mg PO Q4H PRN Sodium Chloride 0.9% [Normal Saline] 1,000 ml Med 12/04/17 11:15 Ordered IV ASDIRECTED Arterial Line Discontinue [OM.PC] Routine Oth 12/04/17 11:09 Ordered Transfuse Red Blood Cells [COMM] Routine Oth 12/04/17 11:07 Ordered Medication Orders Acetaminophen (Tylenol) 325 - 650 mg PO Q4H PRN PRN Reason: Pain Last Admin: 12/04/17 08:29 Dose: 650 mg Admin: 12/03/17 19:43 Dose: 650 mg Admin: 12/03/17 14:43 Dose: 650 mg Bisacodyl (Dulcolax) 10 mg RECTAL .ONCE PRN PRN Reason: Constipation Citric Acid/Sodium Citrate (Bicitra Solution) 30 ml PO .ONCE NOEMI Diphenhydramine HCl (Benadryl) 25 mg IVPUSH Q6H PRN PRN Reason: Itching or Nausea Docusate Sodium (Colace) 100 mg PO BID NOEMI Last Admin: 12/04/17 08:29 Dose: 100 mg Admin: 12/03/17 21:01 Dose: 100 mg Admin: 12/03/17 13:05 Dose: Emollient Ointment (Lansinoh Hpa) 0 gm TOP ASDIRECTED PRN PRN Reason: Sore Nipples Fentanyl (Sublimaze) 50 mcg IVPUSH SEECOMMENT PRN PRN Reason: Pain (moderate 4-6) Lactated Ringer's (Ringers, Lactated) 1,000 mls @ 500 mls/hr IV .BOLUS NOEMI Oxytocin/Sodium Chloride (Oxytocin 30 Unit/500 Ml-Ns) 30 unit in 500 mls @ 250 mls/hr IV TITRATE NOEMI Lactated Ringer's (Ringers, Lactated) 1,000 mls @ 125 mls/hr IV ASDIRECTED NOEMI Sodium Chloride (Normal Saline) 1,000 mls @ 10 mls/hr IV ASDIRECTED NOEMI Ibuprofen (Motrin) 800 mg PO Q8H PRN PRN Reason: mild pain or fever Ondansetron HCl (Zofran) 4 mg IV Q4H PRN PRN Reason: Nausea/Vomiting Oxycodone/Acetaminophen (Percocet 325-5 Mg) 1 tab PO Q4H PRN PRN Reason: Pain (moderate 4-6) Last Admin: 12/04/17 04:27 Dose: 1 tab Admin: 12/03/17 23:35 Dose: 1 tab Oxycodone/Acetaminophen (Percocet 325-5 Mg) 2 tab PO Q4H PRN PRN Reason: Pain (moderate 4-6) Sodium Chloride (Saline Flush) 10 ml FLUSH ASDIRECTED PRN PRN Reason: Keep Vein Open Sodium Chloride (Saline Flush) 2.5 ml FLUSH ASDIRECTED PRN PRN Reason: Keep Vein Open - Assessment Assessment (Free Text/Narrative):: S/P emergency C/Section for bleeding Placenta previa and possible abruption. Her DIC satiation improving her clotting result are improving. adequate urin out put. - Plan Plan (Free Text/Narrative):: Will tranfuse 2 more unit of pack cells unit. Start lig diet, out of bed and transeching to regular post care.
[2017-12-04] MEDS: Ibuprofen 800 MG Tab PO PRN ×2 (11:38→19:10)
--- NOTE | 2017-12-04 15:30 | PCM48HPAN ---
Post Anesthesia Note - EVALUATION WITHIN 48HRS OF ANESTHETIC Vital Signs in Normal Range: Yes Patient Participated in Evaluation: Yes Respiratory Function Stable: Yes Airway Patent: Yes Cardiovascular Function Stable: Yes Hydration Status Stable: Yes Pain Control Satisfactory: Yes Nausea and Vomiting Control Satisfactory: Yes Mental Status Recovered: Yes - COMMENTS/OBSERVATIONS Free Text/Narrative:: Pt condition improved. DIC stabalizing and pt sitting in chair, pleasant and smiling. Denies any questions or problems related to anesthesia.
[2017-12-05] MEDS: Acetaminophen/oxyCODONE 325-5 MG Tab PO PRN ×3 (01:12→18:03)
[2017-12-05] MEDS: Ibuprofen 800 MG Tab PO PRN ×3 (03:37→20:53)
[2017-12-05 06:09] LABS: CHLORIDE,CL 111 mmol/L (98-110); SODIUM,NA 140 mmol/L (136-146)
[2017-12-05] MEDS: Docusate Sodium 100 MG Cap PO SCH ×2 (08:00→20:53)
[2017-12-05] MEDS: Acetaminophen 325 MG Tab PO PRN (08:01)
[2017-12-05] MEDS ORDERED: Sodium Chloride 0.9% 2.5 ML Syringe FLUSH PRN (10:36)
[2017-12-05] MEDS ORDERED: Sodium Chloride 0.9% 10 ML Syringe FLUSH PRN (10:36)
--- NOTE | 2017-12-05 10:53 | PCM.SURGPN ---
- General Info Date of Service: 12/05/17 POD#: 2 Functional Status: Reports: Pain Controlled - Review of Systems General: Reports: No Symptoms HEENT: Reports: No Symptoms Pulmonary: Reports: No Symptoms Cardiovascular: Reports: No Symptoms Gastrointestinal: Reports: No Symptoms Genitourinary: Reports: No Symptoms Musculoskeletal: Reports: No Symptoms Skin: Reports: No Symptoms Neurological: Reports: No Symptoms Psychiatric: Reports: No Symptoms - Patient Data Vitals - Most Recent: Last Vital Signs Temp 36.7 C 12/05/17 08:00 Pulse 102 H 12/04/17 19:22 Resp 18 12/05/17 09:00 BP 111/83 12/05/17 09:00 Pulse Ox 93 L 12/05/17 09:00 Weight - Most Recent: 83.007 kg I&O - Last 24 Hours: Intake & Output 12/04/17 12/05/17 12/05/17 22:59 06:59 14:59 Intake Total 2429 180 160 Output Total 930 335 115 Balance 1499 -155 45 Lab Results Last 24 Hrs: Laboratory Results - last 24 hr 12/03/17 12/03/17 12/05/17 Range/Units 05:52 05:52 05:20 WBC 7.38 (4.0-11.0) K/uL RBC 3.03 L (4.30-5.90) M/uL Hgb 8.9 L (12.0-16.0) g/dL Hct 25.4 L (36.0-46.0) % MCV 83.8 (80.0-98.0) fL MCH 29.4 (27.0-32.0) pg MCHC 35.0 (31.0-37.0) g/dL RDW Std Deviation 47.4 (28.0-62.0) fl RDW Coeff of Klaus 15 (11.0-15.0) % Plt Count 78 L (150-400) K/uL MPV 10.70 (7.40-12.00) fL Neut % (Auto) 75.8 (48.0-80.0) % Lymph % (Auto) 17.2 (16.0-40.0) % Daggett % (Auto) 6.5 (0.0-15.0) % Eos % (Auto) 0.4 (0.0-7.0) % Baso % (Auto) 0.1 (0.0-1.5) % Neut # (Auto) 5.6 (1.4-5.7) K/uL Lymph # (Auto) 1.3 (0.6-2.4) K/uL Daggett # (Auto) 0.5 (0.0-0.8) K/uL Eos # (Auto) 0.0 (0.0-0.7) K/uL Baso # (Auto) 0.0 (0.0-0.1) K/uL Nucleated RBC % 0.0 /100WBC Nucleated RBCs # 0 K/uL Sodium (136-146) mmol/L Potassium (3.5-5.1) mmol/L Chloride (98-110) mmol/L Carbon Dioxide (21-31) mmol/L BUN (6.0-23.0) mg/dL Creatinine (0.6-1.5) mg/dL Est Cr Clr Drug Dosing mL/min Estimated GFR (MDRD) ml/min Glucose (60-110) mg/dL Calcium (8.8-10.8) mg/dL Crossmatch See Detail See Detail 12/05/17 Range/Units 05:20 WBC (4.0-11.0) K/uL RBC (4.30-5.90) M/uL Hgb (12.0-16.0) g/dL Hct (36.0-46.0) % MCV (80.0-98.0) fL MCH (27.0-32.0) pg MCHC (31.0-37.0) g/dL RDW Std Deviation (28.0-62.0) fl RDW Coeff of Klaus (11.0-15.0) % Plt Count (150-400) K/uL MPV (7.40-12.00) fL Neut % (Auto) (48.0-80.0) % Lymph % (Auto) (16.0-40.0) % Daggett % (Auto) (0.0-15.0) % Eos % (Auto) (0.0-7.0) % Baso % (Auto) (0.0-1.5) % Neut # (Auto) (1.4-5.7) K/uL Lymph # (Auto) (0.6-2.4) K/uL Daggett # (Auto) (0.0-0.8) K/uL Eos # (Auto) (0.0-0.7) K/uL Baso # (Auto) (0.0-0.1) K/uL Nucleated RBC % /100WBC Nucleated RBCs # K/uL Sodium 140 (136-146) mmol/L Potassium 3.5 (3.5-5.1) mmol/L Chloride 111 H (98-110) mmol/L Carbon Dioxide 23 (21-31) mmol/L BUN 6 (6.0-23.0) mg/dL Creatinine 0.5 L (0.6-1.5) mg/dL Est Cr Clr Drug Dosing 133.62 mL/min Estimated GFR (MDRD) > 60.0 ml/min Glucose 95 (60-110) mg/dL Calcium 8.4 L (8.8-10.8) mg/dL Crossmatch Med Orders - Current: Current Medications Acetaminophen (Tylenol) 325 - 650 mg PO Q4H PRN PRN Reason: Pain Last Admin: 12/05/17 08:01 Dose: 650 mg Bisacodyl (Dulcolax) 10 mg RECTAL .ONCE PRN PRN Reason: Constipation Citric Acid/Sodium Citrate (Bicitra Solution) 30 ml PO .ONCE NOEMI Diphenhydramine HCl (Benadryl) 25 mg IVPUSH Q6H PRN PRN Reason: Itching or Nausea Docusate Sodium (Colace) 100 mg PO BID NOEMI Last Admin: 12/05/17 08:00 Dose: 100 mg Emollient Ointment (Lansinoh Hpa) 0 gm TOP ASDIRECTED PRN PRN Reason: Sore Nipples Fentanyl (Sublimaze) 50 mcg IVPUSH SEECOMMENT PRN PRN Reason: Pain (moderate 4-6) Lactated Ringer's (Ringers, Lactated) 1,000 mls @ 500 mls/hr IV .BOLUS [facility] Oxytocin/Sodium Chloride (Oxytocin 30 Unit/500 Ml-Ns) 30 unit in 500 mls @ 250 mls/hr IV TITRATE NOEMI Lactated Ringer's (Ringers, Lactated) 1,000 mls @ 125 mls/hr IV ASDIRECTED [facility] Ibuprofen (Motrin) 800 mg PO Q8H PRN PRN Reason: mild pain or fever Last Admin: 12/05/17 03:37 Dose: 800 mg Ondansetron HCl (Zofran) 4 mg IV Q4H PRN PRN Reason: Nausea/Vomiting Last Admin: 12/04/17 11:50 Dose: 4 mg Oxycodone/Acetaminophen (Percocet 325-5 Mg) 1 tab PO Q4H PRN PRN Reason: Pain (moderate 4-6) Last Admin: 12/05/17 01:12 Dose: 1 tab Oxycodone/Acetaminophen (Percocet 325-5 Mg) 2 tab PO Q4H PRN PRN Reason: Pain (moderate 4-6) Sodium Chloride (Saline Flush) 10 ml FLUSH ASDIRECTED PRN PRN Reason: Keep Vein Open Sodium Chloride (Saline Flush) 2.5 ml FLUSH ASDIRECTED PRN PRN Reason: Keep Vein Open Sodium Chloride (Saline Flush) 10 ml FLUSH ASDIRECTED PRN PRN Reason: Keep Vein Open Sodium Chloride (Saline Flush) 2.5 ml FLUSH ASDIRECTED PRN PRN Reason: Keep Vein Open Discontinued Medications Calcium Gluconate (Calcium Gluconate) 1 gm IV ONETIME ONE Stop: 12/03/17 08:42 Last Admin: 12/03/17 08:44 Dose: 1 gm Calcium Gluconate (Calcium Gluconate) 1 gm IVPUSH ONETIME ONE Stop: 12/03/17 10:21 Last Admin: 12/03/17 11:07 Dose: 1 gm Carboprost Tromethamine (Hemabate Ds) Confirm Administered Dose 250 mcg .ROUTE .STK-MED ONE Stop: 12/03/17 06:24 Ephedrine Sulfate (Ephedrine Sulfate) Confirm Administered Dose 50 mg .ROUTE .STK-MED ONE Stop: 12/03/17 06:29 Fentanyl (Sublimaze) Confirm Administered Dose 250 mcg .ROUTE .STK-MED ONE Stop: 12/03/17 06:24 Furosemide (Lasix) 20 mg IVPUSH NOW ONE Stop: 12/03/17 08:42 Last Admin: 12/03/17 08:43 Dose: 20 mg Hydromorphone HCl (Dilaudid) Confirm Administered Dose 2 mg .ROUTE .STK-MED ONE Stop: 12/03/17 06:37 Tranexamic Acid 1,000 mg/ (Sodium Chloride) 110 mls @ 600 mls/hr IV ONETIME ONE Stop: 12/03/17 08:07 Last Admin: 12/03/17 14:03 Dose: Not Given Tranexamic Acid 1,000 mg/ (Sodium Chloride) 260 mls @ 32.5 mls/hr IV ONETIME ONE Stop: 12/03/17 18:44 Last Admin: 12/03/17 10:48 Dose: 32.5 mls/hr Sodium Chloride (Normal Saline) 2,000 mls @ 999 mls/hr IV NOW STA Stop: 12/03/17 12:00 Last Admin: 12/03/17 11:00 Dose: 999 mls/hr Sodium Chloride (Normal Saline) 1,000 mls @ 150 mls/hr IV ASDIRECTED NOEMI Last Infusion: 12/04/17 11:00 Dose: 10 mls/hr Sodium Chloride (Normal Saline) 1,000 mls @ 150 mls/hr IV ASDIRECTED NOEMI Sodium Chloride (Normal Saline) 1,000 mls @ 10 mls/hr IV ASDIRECTED NOEMI Ketorolac Tromethamine (Toradol) 30 mg IVPUSH Q6H NOEMI Stop: 12/04/17 07:01 Last Admin: 12/03/17 07:13 Dose: 30 mg Methylergonovine Maleate (Methergine) Confirm Administered Dose 0.2 mg .ROUTE .STK-MED ONE Stop: 12/03/17 06:24 Methylergonovine Maleate (Methergine) Confirm Administered Dose 0.2 mg .ROUTE .STK-MED ONE Stop: 12/03/17 07:47 Midazolam HCl (Versed 1 Mg/Ml) Confirm Administered Dose 2 mg .ROUTE .STK-MED ONE Stop: 12/03/17 06:24 Octyl Cyanoacrylate (Dermabond Advance) Confirm Administered Dose 1 applic .ROUTE .STK-MED ONE Stop: 12/03/17 06:31 Ondansetron HCl (Zofran) Confirm Administered Dose 4 mg .ROUTE .STK-MED ONE Stop: 12/03/17 06:25 Oxytocin (Pitocin) Confirm Administered Dose 10 unit .ROUTE .STK-MED ONE Stop: 12/03/17 06:24 Oxytocin (Pitocin) Confirm Administered Dose 10 unit .ROUTE .STK-MED ONE Stop: 12/03/17 06:24 Oxytocin (Pitocin) Confirm Administered Dose 10 unit .ROUTE .STK-MED ONE Stop: 12/03/17 06:24 Oxytocin (Pitocin) Confirm Administered Dose 20 unit .ROUTE .STK-MED ONE Stop: 12/03/17 07:05 Propofol (Diprivan 20 Ml) Confirm Administered Dose 200 mg .ROUTE .STK-MED ONE Stop: 12/03/17 06:24 Succinylcholine Chloride (Succinylcholine In Ns Pf) Confirm Administered Dose 200 mg .ROUTE .STK-MED ONE Stop: 12/03/17 06:24 Tranexamic Acid (Cyklokapron) Confirm Administered Dose 1,000 mg .ROUTE .STK- MED ONE Stop: 12/03/17 07:44 Tranexamic Acid (Cyklokapron) 1,000 mg IV ONETIME ONE Stop: 12/03/17 08:01 Last Admin: 12/03/17 13:57 Dose: 1,000 mg - Exam Wound/Incisions: Healing Well General: Alert, Oriented HEENT: Pupils Equal Neck: Supple Lungs: Clear to Auscultation, Normal Respiratory Effort Cardiovascular: Regular Rate, Regular Rhythm GI/Abdominal Exam: Normal Bowel Sounds, Soft, Non-Tender, No Organomegaly, No Distention, No Abnormal Bruit, No Mass, Pelvis Stable Extremities: Normal Inspection, Normal Range of Motion, Non-Tender, No Pedal Edema, Normal Capillary Refill Skin: Warm, Dry, Intact Neurological: No New Focal Deficit Psy/Mental Status: Alert, Normal Affect, Normal Mood - Problem List Review Problem List Initiated/Reviewed/Updated: Yes - My Orders Last 24 Hours: Active Orders 24 hr Category Date Time Status Transfer Patient (Change bed) [ADT] Routine ADT 12/05/17 10:36 Ordered Remove Barkley Catheter [Urinary Catheter Removal] [RC] Care 12/05/17 10:35 Active Per Unit Routine Regular Diet [DIET] Diet 12/05/17 Lunch Active Sodium Chloride 0.9% [Saline Flush] Med 12/05/17 10:36 Ordered 10 ml FLUSH ASDIRECTED PRN Sodium Chloride 0.9% [Saline Flush] Med 12/05/17 10:36 Ordered 2.5 ml FLUSH ASDIRECTED PRN Arterial Line Discontinue [OM.PC] Routine Oth 12/04/17 11:09 Ordered Convert IV to Saline Lock [OM.PC] Routine Oth 12/05/17 10:36 Ordered Transfuse Platelets [COMM] Routine Oth 12/04/17 15:07 Ordered Transfuse Red Blood Cells [COMM] Routine Oth 12/04/17 11:07 Ordered Medication Orders Acetaminophen (Tylenol) 325 - 650 mg PO Q4H PRN PRN Reason: Pain Last Admin: 12/05/17 08:01 Dose: 650 mg Admin: 12/04/17 16:14 Dose: 650 mg Admin: 12/04/17 08:29 Dose: 650 mg Admin: 12/03/17 19:43 Dose: 650 mg Admin: 12/03/17 14:43 Dose: 650 mg Bisacodyl (Dulcolax) 10 mg RECTAL .ONCE PRN PRN Reason: Constipation Citric Acid/Sodium Citrate (Bicitra Solution) 30 ml PO .ONCE NOEMI Diphenhydramine HCl (Benadryl) 25 mg IVPUSH Q6H PRN PRN Reason: Itching or Nausea Docusate Sodium (Colace) 100 mg PO BID NOEMI Last Admin: 12/05/17 08:00 Dose: 100 mg Admin: 12/04/17 20:56 Dose: 100 mg Admin: 12/04/17 08:29 Dose: 100 mg Admin: 12/03/17 21:01 Dose: 100 mg Admin: 12/03/17 13:05 Dose: Emollient Ointment (Lansinoh Hpa) 0 gm TOP ASDIRECTED PRN PRN Reason: Sore Nipples Fentanyl (Sublimaze) 50 mcg IVPUSH SEECOMMENT PRN PRN Reason: Pain (moderate 4-6) Lactated Ringer's (Ringers, Lactated) 1,000 mls @ 500 mls/hr IV .BOLUS NOEMI Oxytocin/Sodium Chloride (Oxytocin 30 Unit/500 Ml-Ns) 30 unit in 500 mls @ 250 mls/hr IV TITRATE NOEMI Lactated Ringer's (Ringers, Lactated) 1,000 mls @ 125 mls/hr IV ASDIRECTED NOEMI Ibuprofen (Motrin) 800 mg PO Q8H PRN PRN Reason: mild pain or fever Last Admin: 12/05/17 03:37 Dose: 800 mg Admin: 12/04/17 19:10 Dose: 800 mg Admin: 12/04/17 11:38 Dose: 800 mg Ondansetron HCl (Zofran) 4 mg IV Q4H PRN PRN Reason: Nausea/Vomiting Last Admin: 12/04/17 11:50 Dose: 4 mg Oxycodone/Acetaminophen (Percocet 325-5 Mg) 1 tab PO Q4H PRN PRN Reason: Pain (moderate 4-6) Last Admin: 12/05/17 01:12 Dose: 1 tab Admin: 12/04/17 20:56 Dose: 1 tab Admin: 12/04/17 04:27 Dose: 1 tab Admin: 12/03/17 23:35 Dose: 1 tab Oxycodone/Acetaminophen (Percocet 325-5 Mg) 2 tab PO Q4H PRN PRN Reason: Pain (moderate 4-6) Sodium Chloride (Saline Flush) 10 ml FLUSH ASDIRECTED PRN PRN Reason: Keep Vein Open Sodium Chloride (Saline Flush) 2.5 ml FLUSH ASDIRECTED PRN PRN Reason: Keep Vein Open Sodium Chloride (Saline Flush) 10 ml FLUSH ASDIRECTED PRN PRN Reason: Keep Vein Open Sodium Chloride (Saline Flush) 2.5 ml FLUSH ASDIRECTED PRN PRN Reason: Keep Vein Open - Assessment Assessment (Free Text/Narrative):: Doing ok - Plan Plan (Free Text/Narrative):: advance diet to riccardo, D/C foly cath and transfer to [facility] ob post bed. may take a shower.
[2017-12-05] MEDS ORDERED: Furosemide 20 MG/2 ML VIAL IVPUSH ONE (15:48)
[2017-12-06] MEDS: Acetaminophen/oxyCODONE 325-5 MG Tab PO PRN ×6 (01:37→20:42)
[2017-12-06] MEDS: Ibuprofen 800 MG Tab PO PRN (05:18)
[2017-12-06 06:51] LABS: CHLORIDE,CL 107 mmol/L (98-110); SODIUM,NA 141 mmol/L (136-146)
--- NOTE | 2017-12-06 09:05 | CT ---
EXAMINATION: Non contrast CT head. Coronal and sagittal reformats. HISTORY: Headache FINDINGS: No evidence of intra or extra axial hemorrhage, mass, midline shift, hydrocephalus or edema. No hypoattenuation changes in the major vascular territories to suggest acute infarct. No abnormal intracranial calcifications are detected. No evidence of substantial vascular calcificat ions. Paranasal sinuses and mastoid air cells are well aerated without substantial findings. Pituitary fossa appears unremarkable. Calvarium is intact. No evidence of skull fracture. IMPRESSION: No acute intracranial findings.
[2017-12-06] MEDS: Acetaminophen 325 MG Tab PO PRN (10:33)
[2017-12-06] MEDS: Docusate Sodium 100 MG Cap PO SCH ×2 (10:33→20:42)
[2017-12-07] MEDS: Ibuprofen 800 MG Tab PO PRN ×2 (04:37→11:44)
[2017-12-07] MEDS: Acetaminophen/oxyCODONE 325-5 MG Tab PO PRN (08:12)
--- NOTE | 2017-12-07 09:30 | PCM.SURGPN ---
- General Info Date of Service: 12/07/17 POD#: 4 Functional Status: Reports: Pain Controlled - Review of Systems General: Reports: No Symptoms HEENT: Reports: No Symptoms Pulmonary: Reports: No Symptoms Cardiovascular: Reports: No Symptoms Gastrointestinal: Reports: No Symptoms Genitourinary: Reports: No Symptoms Musculoskeletal: Reports: No Symptoms Skin: Reports: No Symptoms Neurological: Reports: No Symptoms Psychiatric: Reports: No Symptoms - Patient Data Vitals - Most Recent: Last Vital Signs Temp 37.3 C 12/07/17 05:04 Pulse 98 12/07/17 06:13 Resp 14 12/07/17 05:04 BP 146/79 H 12/07/17 05:04 Pulse Ox 95 12/07/17 05:04 Weight - Most Recent: 83.007 kg I&O - Last 24 Hours: Intake & Output 12/06/17 12/07/17 12/07/17 22:59 06:59 14:59 Intake Total 850 950 Output Total 200 Balance 650 950 Lab Results Last 24 Hrs: Laboratory Results - last 24 hr 12/03/17 Range/Units 05:52 Crossmatch See Detail Med Orders - Current: Current Medications Acetaminophen (Tylenol) 325 - 650 mg PO Q4H PRN PRN Reason: Pain Last Admin: 12/06/17 10:33 Dose: 325 mg Bisacodyl (Dulcolax) 10 mg RECTAL .ONCE PRN PRN Reason: Constipation Citric Acid/Sodium Citrate (Bicitra Solution) 30 ml PO .ONCE NOEMI Diphenhydramine HCl (Benadryl) 25 mg IVPUSH Q6H PRN PRN Reason: Itching or Nausea Docusate Sodium (Colace) 100 mg PO BID NOEMI Last Admin: 12/06/17 20:42 Dose: 100 mg Emollient Ointment (Lansinoh Hpa) 0 gm TOP ASDIRECTED PRN PRN Reason: Sore Nipples Fentanyl (Sublimaze) 50 mcg IVPUSH SEECOMMENT PRN PRN Reason: Pain (moderate 4-6) Lactated Ringer's (Ringers, Lactated) 1,000 mls @ 500 mls/hr IV .BOLUS NOEMI Oxytocin/Sodium Chloride (Oxytocin 30 Unit/500 Ml-Ns) 30 unit in 500 mls @ 250 mls/hr IV TITRATE NOEMI Lactated Ringer's (Ringers, Lactated) 1,000 mls @ 125 mls/hr IV ASDIRECTED NOEMI Ibuprofen (Motrin) 800 mg PO Q8H PRN PRN Reason: mild pain or fever Last Admin: 12/07/17 04:37 Dose: 800 mg Ondansetron HCl (Zofran) 4 mg IV Q4H PRN PRN Reason: Nausea/Vomiting Last Admin: 12/04/17 11:50 Dose: 4 mg Oxycodone/Acetaminophen (Percocet 325-5 Mg) 1 tab PO Q4H PRN PRN Reason: Pain (moderate 4-6) Last Admin: 12/07/17 08:12 Dose: 1 tab Oxycodone/Acetaminophen (Percocet 325-5 Mg) 2 tab PO Q4H PRN PRN Reason: Pain (moderate 4-6) Last Admin: 12/07/17 01:10 Dose: 2 tab Sodium Chloride (Saline Flush) 10 ml FLUSH ASDIRECTED PRN PRN Reason: Keep Vein Open Sodium Chloride (Saline Flush) 2.5 ml FLUSH ASDIRECTED PRN PRN Reason: Keep Vein Open Sodium Chloride (Saline Flush) 10 ml FLUSH ASDIRECTED PRN PRN Reason: Keep Vein Open Sodium Chloride (Saline Flush) 2.5 ml FLUSH ASDIRECTED PRN PRN Reason: Keep Vein Open Discontinued Medications Calcium Gluconate (Calcium Gluconate) 1 gm IV ONETIME ONE Stop: 12/03/17 08:42 Last Admin: 12/03/17 08:44 Dose: 1 gm Calcium Gluconate (Calcium Gluconate) 1 gm IVPUSH ONETIME ONE Stop: 12/03/17 10:21 Last Admin: 12/03/17 11:07 Dose: 1 gm Carboprost Tromethamine (Hemabate Ds) Confirm Administered Dose 250 mcg .ROUTE .STK-MED ONE Stop: 12/03/17 06:24 Ephedrine Sulfate (Ephedrine Sulfate) Confirm Administered Dose 50 mg .ROUTE .STK-MED ONE Stop: 12/03/17 06:29 Fentanyl (Sublimaze) Confirm Administered Dose 250 mcg .ROUTE .STK-MED ONE Stop: 12/03/17 06:24 Furosemide (Lasix) 20 mg IVPUSH NOW ONE Stop: 12/03/17 08:42 Last Admin: 12/03/17 08:43 Dose: 20 mg Furosemide (Lasix) 20 mg IVPUSH NOW ONE Stop: 12/05/17 15:49 Last Admin: 12/05/17 18:03 Dose: 20 mg Hydromorphone HCl (Dilaudid) Confirm Administered Dose 2 mg .ROUTE .STK-MED ONE Stop: 12/03/17 06:37 Tranexamic Acid 1,000 mg/ (Sodium Chloride) 110 mls @ 600 mls/hr IV ONETIME ONE Stop: 12/03/17 08:07 Last Admin: 12/03/17 14:03 Dose: Not Given Tranexamic Acid 1,000 mg/ (Sodium Chloride) 260 mls @ 32.5 mls/hr IV ONETIME ONE Stop: 12/03/17 18:44 Last Admin: 12/03/17 10:48 Dose: 32.5 mls/hr Sodium Chloride (Normal Saline) 2,000 mls @ 999 mls/hr IV NOW STA Stop: 12/03/17 12:00 Last Admin: 12/03/17 11:00 Dose: 999 mls/hr Sodium Chloride (Normal Saline) 1,000 mls @ 150 mls/hr IV ASDIRECTED NOEMI Last Infusion: 12/04/17 11:00 Dose: 10 mls/hr Sodium Chloride (Normal Saline) 1,000 mls @ 150 mls/hr IV ASDIRECTED NOEMI Sodium Chloride (Normal Saline) 1,000 mls @ 10 mls/hr IV ASDIRECTED NOEMI Ketorolac Tromethamine (Toradol) 30 mg IVPUSH Q6H NOEMI Stop: 12/04/17 07:01 Last Admin: 12/03/17 07:13 Dose: 30 mg Methylergonovine Maleate (Methergine) Confirm Administered Dose 0.2 mg .ROUTE .STK-MED ONE Stop: 12/03/17 06:24 Methylergonovine Maleate (Methergine) Confirm Administered Dose 0.2 mg .ROUTE .STK-MED ONE Stop: 12/03/17 07:47 Midazolam HCl (Versed 1 Mg/Ml) Confirm Administered Dose 2 mg .ROUTE .STK-MED ONE Stop: 12/03/17 06:24 Octyl Cyanoacrylate (Dermabond Advance) Confirm Administered Dose 1 applic .ROUTE .STK-MED ONE Stop: 12/03/17 06:31 Ondansetron HCl (Zofran) Confirm Administered Dose 4 mg .ROUTE .STK-MED ONE Stop: 12/03/17 06:25 Oxytocin (Pitocin) Confirm Administered Dose 10 unit .ROUTE .STK-MED ONE Stop: 12/03/17 06:24 Oxytocin (Pitocin) Confirm Administered Dose 10 unit .ROUTE .STK-MED ONE Stop: 12/03/17 06:24 Oxytocin (Pitocin) Confirm Administered Dose 10 unit .ROUTE .STK-MED ONE Stop: 12/03/17 06:24 Oxytocin (Pitocin) Confirm Administered Dose 20 unit .ROUTE .STK-MED ONE Stop: 12/03/17 07:05 Propofol (Diprivan 20 Ml) Confirm Administered Dose 200 mg .ROUTE .STK-MED ONE Stop: 12/03/17 06:24 Succinylcholine Chloride (Succinylcholine In Ns Pf) Confirm Administered Dose 200 mg .ROUTE .STK-MED ONE Stop: 12/03/17 06:24 Tranexamic Acid (Cyklokapron) Confirm Administered Dose 1,000 mg .ROUTE .STK- MED ONE Stop: 12/03/17 07:44 Tranexamic Acid (Cyklokapron) 1,000 mg IV ONETIME ONE Stop: 12/03/17 08:01 Last Admin: 12/03/17 13:57 Dose: 1,000 mg - Exam Wound/Incisions: Healing Well General: Alert, Oriented HEENT: Pupils Equal Neck: Supple Lungs: Clear to Auscultation, Normal Respiratory Effort Cardiovascular: Regular Rate, Regular Rhythm GI/Abdominal Exam: Normal Bowel Sounds, Soft, Non-Tender, No Organomegaly, No Distention, No Abnormal Bruit, No Mass, Pelvis Stable Extremities: Normal Inspection, Normal Range of Motion, Non-Tender, No Pedal Edema, Normal Capillary Refill Skin: Warm, Dry, Intact Neurological: No New Focal Deficit Psy/Mental Status: Alert, Normal Affect, Normal Mood - Problem List Review Problem List Initiated/Reviewed/Updated: Yes - My Orders Last 24 Hours: Medication Orders Acetaminophen (Tylenol) 325 - 650 mg PO Q4H PRN PRN Reason: Pain Last Admin: 12/06/17 10:33 Dose: 325 mg Admin: 12/05/17 08:01 Dose: 650 mg Admin: 12/04/17 16:14 Dose: 650 mg Admin: 12/04/17 08:29 Dose: 650 mg Admin: 12/03/17 19:43 Dose: 650 mg Admin: 12/03/17 14:43 Dose: 650 mg Bisacodyl (Dulcolax) 10 mg RECTAL .ONCE PRN PRN Reason: Constipation Citric Acid/Sodium Citrate (Bicitra Solution) 30 ml PO .ONCE NOEMI Diphenhydramine HCl (Benadryl) 25 mg IVPUSH Q6H PRN PRN Reason: Itching or Nausea Docusate Sodium (Colace) 100 mg PO BID NOEMI Last Admin: 12/06/17 20:42 Dose: 100 mg Admin: 12/06/17 10:33 Dose: 100 mg Admin: 12/05/17 20:53 Dose: 100 mg Admin: 12/05/17 08:00 Dose: 100 mg Admin: 12/04/17 20:56 Dose: 100 mg Admin: 12/04/17 08:29 Dose: 100 mg Admin: 12/03/17 21:01 Dose: 100 mg Admin: 12/03/17 13:05 Dose: Emollient Ointment (Lansinoh Hpa) 0 gm TOP ASDIRECTED PRN PRN Reason: Sore Nipples Fentanyl (Sublimaze) 50 mcg IVPUSH SEECOMMENT PRN PRN Reason: Pain (moderate 4-6) Lactated Ringer's (Ringers, Lactated) 1,000 mls @ 500 mls/hr IV .BOLUS [facility] Oxytocin/Sodium Chloride (Oxytocin 30 Unit/500 Ml-Ns) 30 unit in 500 mls @ 250 mls/hr IV TITRATE [facility] Lactated Ringer's (Ringers, Lactated) 1,000 mls @ 125 mls/hr IV ASDIRECTED [facility] Ibuprofen (Motrin) 800 mg PO Q8H PRN PRN Reason: mild pain or fever Last Admin: 12/07/17 04:37 Dose: 800 mg Admin: 12/06/17 05:18 Dose: 800 mg Admin: 12/05/17 20:53 Dose: 800 mg Admin: 12/05/17 11:49 Dose: 800 mg Admin: 12/05/17 03:37 Dose: 800 mg Admin: 12/04/17 19:10 Dose: 800 mg Admin: 12/04/17 11:38 Dose: 800 mg Ondansetron HCl (Zofran) 4 mg IV Q4H PRN PRN Reason: Nausea/Vomiting Last Admin: 12/04/17 11:50 Dose: 4 mg Oxycodone/Acetaminophen (Percocet 325-5 Mg) 1 tab PO Q4H PRN PRN Reason: Pain (moderate 4-6) Last Admin: 12/07/17 08:12 Dose: 1 tab Admin: 12/06/17 20:42 Dose: 1 tab Admin: 12/06/17 16:23 Dose: 1 tab Admin: 12/06/17 15:15 Dose: 1 tab Admin: 12/06/17 11:27 Dose: 1 tab Admin: 12/06/17 06:35 Dose: 1 tab Admin: 12/06/17 01:37 Dose: 1 tab Admin: 12/05/17 18:03 Dose: 1 tab Admin: 12/05/17 12:51 Dose: 1 tab Admin: 12/05/17 01:12 Dose: 1 tab Admin: 12/04/17 20:56 Dose: 1 tab Admin: 12/04/17 04:27 Dose: 1 tab Admin: 12/03/17 23:35 Dose: 1 tab Oxycodone/Acetaminophen (Percocet 325-5 Mg) 2 tab PO Q4H PRN PRN Reason: Pain (moderate 4-6) Last Admin: 12/07/17 01:10 Dose: 2 tab Sodium Chloride (Saline Flush) 10 ml FLUSH ASDIRECTED PRN PRN Reason: Keep Vein Open Sodium Chloride (Saline Flush) 2.5 ml FLUSH ASDIRECTED PRN PRN Reason: Keep Vein Open Sodium Chloride (Saline Flush) 10 ml FLUSH ASDIRECTED PRN PRN Reason: Keep Vein Open Sodium Chloride (Saline Flush) 2.5 ml FLUSH ASDIRECTED PRN PRN Reason: Keep Vein Open - Assessment Assessment (Free Text/Narrative):: Status post section postoperative day #4 the patient is doing well and recovering nicely from DIC. Her lab work and hematocrit stabilizing had incision is clean and dry no sign of infection - Plan Plan (Free Text/Narrative):: I'm sending the patient with a postoperative instruction and prescription for Percocet 7.5/325 for postoperative pain I advised the patient to take iron and vitamin at home and to come back for follow-up examination in 1 week
[2017-12-07 14:13] VITALS: BP 116/74
== END 2017-12-07 13:20 | disposition home or self-care (01) | DRG 540 ==
LOC: MW.OBCHECK 05:34 → MW.OB 05:38 → MW.OBCHECK 05:43 → MW.OB 05:43 → MW.ICU 09:39 → MW.OB 12-05 10:36
PROVIDERS: ADMIT Obstetrics & Gynecology; ATTEND Obstetrics & Gynecology
PROC: 10D00Z1 Extraction of Products of Conception, Low, Open Approach (ICD-10-PCS; principal; 2017-12-03)
PROC: 30233N1 Transfusion of Nonautologous Red Blood Cells into Peripheral Vein, Percutaneous Approach (ICD-10-PCS; 2017-12-03)
DX: O44.13 Complete placenta previa with hemorrhage, third trimester (principal); Z3A.36 36 weeks gestation of pregnancy; Z37.0 Single live birth
CPT/HCPCS: 01961; 36415; 36430; 59025; 70450; 70450-26; 71045; 71045-26; 80048; 80053; 82330; 85014; 85018; 85025; 85027; 85049; 85384; 85610; 85730; 86850; 86900; 86901; 86920; 86921; 86922; 88307; A9270-GY; J0610; J0690; J1170; J1885; J1940; J2210; J2250; J2405; J2590; J2704; J3010; J7040; J7050; P9016; P9017; P9034

== ENCOUNTER 2020-12-31 21:28 | Observation (INO) | payer BC ==
[2020-12-31] MEDS ORDERED: Morphine 4 MG/ML Syringe IVPUSH ONE (22:13)
[2020-12-31] MEDS ORDERED: Lactated Ringers 1,000 ML IV SCH (22:15)
[2020-12-31 22:46] LABS: BLOOD UREA NITROGEN,BUN 6 mg/dL (7.0-18.0); CARBON DIOXIDE,CO2 29.7 mmol/L (21.0-32.0); CHLORIDE,CL 101 mmol/L (98-107); GLUCOSE RANDOM 100 mg/dL (74-106); LIPASE 61 U/L (73-393); POTASSIUM,K 3.6 mmol/L (3.5-5.1); SODIUM,NA 136 mmol/L (136-145)
--- NOTE | 2021-01-01 00:04 | US ---
INDICATION: Right upper quadrant pain TECHNIQUE: Ultrasound abdomen limited. Sonographic images of the right upper quadrant were obtained using singleton-scale and color Doppler images. COMPARISON: None available FINDINGS: Liver: Unremarkable size and echotexture. No masses. No intrahepatic biliary dilatation. Gallbladder: Cholelithiasis and gallbladder sludge. Thickened, irregular, and possibly partially striated, gallbladder wall, measuring up to 6 mm. Nondependent echogenic foci along the gallbladder wall with associated shadowing. Pericholecystic fluid. A positive sonographic Teague`s sign. Common bile duct: 5 mm. Pancreas: Not well seen due to obscuring bowel gas. Right kidney: 10.7 x 4.7 x 4.3 cm. Unremarkable echotexture and cortex. No masses, stones, or hydronephrosis. IMPRESSION: Cholelithiasis and gallbladder sludge with gallbladder wall thickening and irregularity, pericholecystic fluid and a positive sonographic Teague sign, consistent with acute, possibly gangrenous, cholecystitis, in the correct clinical settings. Nondependent shadowing echogenic foci along the gallbladder wall, and gas within the gallbladder wall/emphysematous cholecystitis, is not excluded. Consider correlation with a KUB. Limited evaluation of the pancreas. Dictated by Andrew Hamilton MD @ Dec 31 2020 11:53PM Signed by Dr. Andrew Hamilton @ Jan 01 2021 12:02AM
[2021-01-01] MEDS ORDERED: Piperacillin/Tazobactam 4.5 GM in Sodium Chloride 0.9% 100 ML IV ONE (00:11)
[2021-01-01] MEDS ORDERED: Lactated Ringers 1,000 ML IV SCH (00:15)
[2021-01-01] MEDS ORDERED: Iopamidol 755 MG/ML 500 ML Multipack Bottle IVPUSH STA (00:31)
--- NOTE | 2021-01-01 01:11 | CT ---
INDICATION: Cholecystitis with ultrasound findings of possible emphysematous cholecystitis. TECHNIQUE: CT abdomen and pelvis acquired with 100 cc Isovue 370 IV contrast. COMPARISON: Abdominal ultrasound December 31, 2020 FINDINGS: Lower chest: Unremarkable. Liver: Calcified granulomata. Spleen: Unremarkable. Pancreas: Unremarkable. Gallbladder and bile ducts: Diffuse gallbladder wall thickening. No gallbladder wall air identified small amount of pericholecystic fluid.. Adrenal glands: Unremarkable. Kidneys: Unremarkable. GI tract: Unremarkable. Appendix is normal. Vascular structures: Unremarkable. Lymph nodes: Unremarkable. Miscellaneous: Unremarkable. No free air or significant free fluid. Pelvic Organs: Trace free fluid in the pelvis, likely physiologic. Tubular hypodense lesion in the left adnexa measuring at least 5.0 x 1.5 cm. Bones: Unremarkable for age. IMPRESSION: Findings consistent with acute cholecystitis. No evidence for emphysematous cholecystitis. Questionable left hydrosalpinx. Recommend nonemergent pelvic ultrasound for further evaluation. Please note that all CT scans at this facility use dose modulation, iterative reconstruction, and/or weight-based dosing when appropriate to reduce radiation dose to as low as reasonably achievable. Dictated by Cat Amin MD @ Jan 01 2021 1:09AM Signed by Dr. Cat Amin @ Jan 01 2021 1:09AM
[2021-01-01] MEDS ORDERED: HYDROmorphone 1 MG/ML Syringe IVPUSH ONE (01:12)
[2021-01-01] MEDS ORDERED: HYDROmorphone 2 MG/ML Syringe IVPUSH PRN (01:30)
[2021-01-01] MEDS ORDERED: Ondansetron 4 MG/2 ML SDV IVPUSH PRN (01:34)
[2021-01-01] MEDS: Piperacillin/Tazobactam 3.375 GM in Sodium Chloride 0.9% 50 ML IV SCH ×4 (02:23→19:54)
--- NOTE | 2021-01-01 04:20 | EDM.PDOC ---
ED HPI GENERAL MEDICAL PROBLEM - General Chief Complaint: Abdominal Pain Stated Complaint: LT SIDE PAIN Time Seen by Provider: 12/31/20 22:45 - History of Present Illness INITIAL COMMENTS - FREE TEXT/NARRATIVE: CHIEF COMPLAINT(S): Abdominal pain HISTORY OF PRESENT ILLNESS: This is a 35-year-old woman without any past medical history who comes to the emergency department with a chief complaint of abdominal pain. The patient states that she has been experiencing right upper quadrant abdominal pain for at least 2 days. She describes the pain as sharp and 10 out of 10 pain. She states that the pain is not exacerbated by eating and denies any nausea or vomiting. She denies any fevers or chills. She states that she does not have any hematemesis, bilious emesis, melena or hematochezia. She denies any history of peptic ulcer disease or reflux disease. She she denies any other exacerbating factors and nothing seems to be relieving the pain. She tried Tylenol which did not seem to help. She denies any chest pain or shortness of breath. REVIEW OF SYSTEMS: Constitutional: Denies fever, chills. Eyes: Denies eye pain Ears, Nose, Mouth, & Throat: Denies earache Cardiovascular: Denies chest pain Respiratory: Denies shortness of breath Gastrointestinal: Positive for right upper quadrant abdominal pain. Denies nausea, vomiting, diarrhea, hematochezia, melena, hematemesis, bilious emesis Genitourinary: Denies hematuria Skin:Denies a rash MSK: Denies joint pain Neurological: Denies blurred vision Psychiatric: Denies depression PAST MEDICAL HISTORY: As per history of present illness and as reviewed below otherwise noncontributory. SURGICAL HISTORY: As per history of present illness and as reviewed below otherwise noncontributory. SOCIAL HISTORY: As per history of present illness and as reviewed below otherwise noncontributory. FAMILY HISTORY: As per history of present illness and as reviewed below otherwise noncontributory. EXAMINATION OF ORGAN SYSTEMS/BODY AREAS: Constitutional: Blood pressure was 144/98, heart rate 73, respiratory rate 18 with an oxygen saturation of 98% on room air. Temperature 37.2 General: Overall well-appearing woman who is in no acute distress Psychiatric: Appropriate mood and affect. Eyes: No scleral icterus or conjunctival erythema ENMT: Moist mucous membranes. No pharyngeal erythema Cardiovascular: Regular, rate, and rhythm. No gallops, murmurs, or rubs. Bilateral upper extremity pulses symmetric and intact. No peripheral edema. No JVD. Respiratory: Lungs clear to auscultation bilaterally. No wheezes, rales, or rhonchi. Gastrointestinal: Soft, nondistended, severe tenderness to palpation in the right upper quadrant. Positive Teague sign. Negative McBurney sign. No rebound or guarding. Genitourinary: No suprapubic tenderness Musculoskeletal: Normal range of motion. Skin: No lesions or abrasions. Neurological: Alert, GCS 15 MEDICAL DECISION MAKING AND COURSE IN THE ED WITH INTERPRETATION/REVIEW OF DIAGNOSTIC STUDIES: This is a 35-year-old woman without any significant past medical history who comes to the emergency department with 2 days of constant right upper quadrant abdominal pain with a positive Teague sign. At this time I am concerned about the possibility of cholecystitis. Differential does include pancreatitis or peptic ulcer disease however these are less likely. We will obtain a right upper quadrant ultrasound. We will provide the patient with 1 L of lactated Ringer's bolus and provide the patient with morphine for pain relief. Will obtain CBC, CMP, lipase, urinalysis and hCG. At this time given the patient is not tachycardic, is afebrile and overall well-appearing I do not believe antibiotic administration is needed at this time. Laboratory: CBC is unremarkable except for microcytosis with an MCV of 77.8. CMP is unremarkable. Lipase is normal. hCG is negative. Covid is positive. Urinalysis was a clean catch and was trace for leukocyte esterase, negative for nitrites, and negative for blood. 1-3 WBCs interpretation: Negative. The radiological images were viewed by myself along with reading the report from the radiologist. Right upper quadrant ultrasound reveals cholelithiasis and gallbladder sludge with gallbladder wall thickening and irregularity with pericholecystic fluid and positive sonographic Teague sign consistent with acute possibly gangrenous cholecystitis. There is nondependent shadowing echogenic foci along the gallbladder wall and gas within the gallbladder wall indicating the emphysematous cholecystitis is not excluded. Given that the patient is normal appearing without any white count, fever, hypotension I would suspect if the patient had gangrenous cholecystitis or emphysematous cholecystitis the patient would be presenting sicker than she is. I did contact Dr. Hines who recommended obtaining a CT abdomen pelvis with contrast. I did start the patient on IV Zosyn at this time and maintenance fluid. I did provide the patient with an additional dose of Dilaudid 1 mg IV. The radiological images were viewed by myself along with reading the report from the radiologist. CT abdomen pelvis with IV contrast reveals acute cholecystitis without any evidence of emphysematous cholecystitis. After imaging I did discuss with surgeon. She recommended admission and IV antibiotics at this time. I did discuss this with the patient she was amenable to this plan. DISPOSITION: Patient was admitted for observation in stable condition CONDITION: Fair PROCEDURES: None FINAL IMPRESSION(S)/DIAGNOSES: 1. Acute cholecystitis 2. Acute COVID-19 Boone Barry M.D. Abdomen Pain Score (Numeric/FACES): 5 - Related Data Allergies Allergy/AdvReac Type Severity Reaction Status Date / Time No Known Allergies Allergy Verified 12/31/20 21:36 Home Meds: Home Meds . [No Known Home Meds] 12/31/20 [History] Past Medical History - Past Health History Medical/Surgical History: Denies Medical/Surgical History HEENT History: Reports: None Cardiovascular History: Reports: None Respiratory History: Reports: None Gastrointestinal History: Reports: None Genitourinary History: Reports: None CONCRETE FLOATER History: Reports: Musculoskeletal History: Reports: None Neurological History: Reports: None Psychiatric History: Reports: None Endocrine/Metabolic History: Reports: None Insulin Pump Model and Rn Case Manager: None Hematologic History: Reports: None Immunologic History: Reports: None Oncologic (Cancer) History: Reports: None Dermatologic History: Reports: None - Infectious Disease History Infectious Disease History: Reports: None - Past Surgical History Head Surgeries/Procedures: Reports: None Female Surgical History: Reports: Section Social & Family History - Family History Family Medical History: No Pertinent Family History - Caffeine Use Caffeine Use: Reports: None - Recreational Drug Use Recreational Drug Use: No ED ROS GENERAL - Review of Systems Review Of Systems: See Below ED EXAM, GENERAL - Physical Exam Exam: See Below Course - Vital Signs Last Recorded V/S: Last Vital Signs Temp 36.3 C 01/01/21 01:50 Pulse 67 01/01/21 01:50 Resp 19 01/01/21 01:50 BP 116/75 01/01/21 01:50 Pulse Ox 96 01/01/21 01:50 - Orders/Labs/Meds Orders: Active Orders 24 hr Category Date Time Status Lactated Ringers [Ringers, Lactated] 1,000 ml Med 12/31/20 22:15 Active IV ASDIRECTED Lactated Ringers [Ringers, Lactated] 1,000 ml Med 01/01/21 00:15 Active IV ASDIRECTED Labs: Laboratory Tests 12/31/20 12/31/20 12/31/20 Range/Units 21:35 21:35 22:10 WBC 7.03 (4.0-11.0) K/uL RBC 4.95 (4.30-5.90) M/uL Hgb 12.8 (12.0-16.0) g/dL Hct 38.5 (36.0-46.0) % MCV 77.8 L (80.0-98.0) fL MCH 25.9 L (27.0-32.0) pg MCHC 33.2 (31.0-37.0) g/dL RDW Std Deviation 42.7 (28.0-62.0) fl RDW Coeff of Klaus 15 (11.0-15.0) % Plt Count 183 (150-400) K/uL MPV 12.30 H (7.40-12.00) fL Neut % (Auto) 71.5 (48.0-80.0) % Lymph % (Auto) 20.1 (16.0-40.0) % [place] % (Auto) 7.1 (0.0-15.0) % Eos % (Auto) 1.0 (0.0-7.0) % Baso % (Auto) 0.3 (0.0-1.5) % Neut # (Auto) 5.0 (1.4-5.7) K/uL Lymph # (Auto) 1.4 (0.6-2.4) K/uL [place] # (Auto) 0.5 (0.0-0.8) K/uL Eos # (Auto) 0.1 (0.0-0.7) K/uL Baso # (Auto) 0.0 (0.0-0.1) K/uL Nucleated RBC % 0.0 /100WBC Nucleated RBCs # 0 K/uL Sodium (136-145) mmol/L Potassium (3.5-5.1) mmol/L Chloride (98-107) mmol/L Carbon Dioxide (21.0-32.0) mmol/L BUN (7.0-18.0) mg/dL Creatinine (0.6-1.0) mg/dL Est Cr Clr Drug Dosing Estimated GFR (MDRD) ml/min Glucose (74-106) mg/dL Calcium (8.5-10.1) mg/dL Total Bilirubin (0.2-1.0) mg/dL AST (15-37) IU/L ALT (14-63) IU/L Alkaline Phosphatase (46-116) U/L Total Protein (6.4-8.2) g/dL Albumin (3.4-5.0) g/dL Globulin (2.6-4.0) g/dL Albumin/Globulin Ratio (0.9-1.6) Lipase (73-393) U/L Urine Color YELLOW Urine Appearance CLEAR Urine pH 7.0 (5.0-8.0) Ur Specific [place] 1.020 (1.001-1.035) Urine Protein NEGATIVE (NEGATIVE) mg/dL Urine Glucose (UA) NEGATIVE (NEGATIVE) mg/dL Urine Ketones NEGATIVE (NEGATIVE) mg/dL Urine Occult Blood NEGATIVE (NEGATIVE) Urine Nitrite NEGATIVE (NEGATIVE) Urine Bilirubin NEGATIVE (NEGATIVE) Urine Urobilinogen 0.2 (<2.0) EU/dL Ur Leukocyte Esterase TRACE H (NEGATIVE) Urine RBC 0-1 (0-2/HPF) Urine WBC 1-3 (0-5/HPF) Ur Epithelial Cells FEW (NONE-FEW) Urine Bacteria 1+ H (NEGATIVE) Urine Mucus LIGHT (NONE-MOD) Urine HCG, Qual NEGATIVE (NEGATIVE) SARS-CoV-2 RNA (GILDA) (NEGATIVE) Blood Type Antibody Screen 12/31/20 01/01/21 01/01/21 Range/Units 22:10 00:10 01:03 WBC (4.0-11.0) K/uL RBC (4.30-5.90) M/uL Hgb (12.0-16.0) g/dL Hct (36.0-46.0) % MCV (80.0-98.0) fL MCH (27.0-32.0) pg MCHC (31.0-37.0) g/dL RDW Std Deviation (28.0-62.0) fl RDW Coeff of Klaus (11.0-15.0) % Plt Count (150-400) K/uL MPV (7.40-12.00) fL Neut % (Auto) (48.0-80.0) % Lymph % (Auto) (16.0-40.0) % [place] % (Auto) (0.0-15.0) % Eos % (Auto) (0.0-7.0) % Baso % (Auto) (0.0-1.5) % Neut # (Auto) (1.4-5.7) K/uL Lymph # (Auto) (0.6-2.4) K/uL [place] # (Auto) (0.0-0.8) K/uL Eos # (Auto) (0.0-0.7) K/uL Baso # (Auto) (0.0-0.1) K/uL Nucleated RBC % /100WBC Nucleated RBCs # K/uL Sodium 136 (136-145) mmol/L Potassium 3.6 (3.5-5.1) mmol/L Chloride 101 (98-107) mmol/L Carbon Dioxide 29.7 (21.0-32.0) mmol/L BUN 6 L (7.0-18.0) mg/dL Creatinine 0.8 (0.6-1.0) mg/dL Est Cr Clr Drug Dosing TNP Estimated GFR (MDRD) > 60.0 ml/min Glucose 100 (74-106) mg/dL Calcium 9.1 (8.5-10.1) mg/dL Total Bilirubin 0.2 (0.2-1.0) mg/dL AST 27 (15-37) IU/L ALT 36 (14-63) IU/L Alkaline Phosphatase 70 (46-116) U/L Total Protein 8.4 H (6.4-8.2) g/dL Albumin 3.6 (3.4-5.0) g/dL Globulin 4.8 H (2.6-4.0) g/dL Albumin/Globulin Ratio 0.8 L (0.9-1.6) Lipase 61 L (73-393) U/L Urine Color Urine Appearance Urine pH (5.0-8.0) Ur Specific [place] (1.001-1.035) Urine Protein (NEGATIVE) mg/dL Urine Glucose (UA) (NEGATIVE) mg/dL Urine Ketones (NEGATIVE) mg/dL Urine Occult Blood (NEGATIVE) Urine Nitrite (NEGATIVE) Urine Bilirubin (NEGATIVE) Urine Urobilinogen (<2.0) EU/dL Ur Leukocyte Esterase (NEGATIVE) Urine RBC (0-2/HPF) Urine WBC (0-5/HPF) Ur Epithelial Cells (NONE-FEW) Urine Bacteria (NEGATIVE) Urine Mucus (NONE-MOD) Urine HCG, Qual (NEGATIVE) SARS-CoV-2 RNA (GILDA) POSITIVE H (NEGATIVE) Blood Type O POSITIVE Antibody Screen NEGATIVE Departure - Departure Time of Disposition: 01:23 Disposition: Refer to Observation Condition: Fair Clinical Impression: Cholecystitis, COVID-19 - Discharge Information Sepsis Event Note (ED) - Evaluation Sepsis Screening Result: No Definite Risk - Focused Exam Vital Signs: Vital Signs Temp Pulse Resp BP Pulse Ox 01/01/21 00:49 36.2 C 68 18 157/98 H 97 12/31/20 23:15 65 18 132/86 97 12/31/20 21:36 37.2 C 73 18 144/98 H 98 - My Orders Last 24 Hours: My Active Orders 12/31/20 22:15 Lactated Ringers [Ringers, Lactated] 1,000 ml IV ASDIRECTED 01/01/21 00:15 Lactated Ringers [Ringers, Lactated] 1,000 ml IV ASDIRECTED - Assessment/Plan Last 24 Hours: My Active Orders 12/31/20 22:15 Lactated Ringers [Ringers, Lactated] 1,000 ml IV ASDIRECTED 01/01/21 00:15 Lactated Ringers [Ringers, Lactated] 1,000 ml IV ASDIRECTED
[2021-01-01 05:52] LABS: BLOOD UREA NITROGEN,BUN 6 mg/dL (7.0-18.0); CARBON DIOXIDE,CO2 26.6 mmol/L (21.0-32.0); CHLORIDE,CL 103 mmol/L (98-107); GLUCOSE RANDOM 95 mg/dL (74-106); POTASSIUM,K 3.7 mmol/L (3.5-5.1); SODIUM,NA 137 mmol/L (136-145)
[2021-01-01] MEDS: Acetaminophen/oxyCODONE 325-5 MG Tab PO PRN ×3 (07:20→20:01)
[2021-01-01] MEDS ORDERED: Sodium Chloride 0.9% 10 ML Syringe FLUSH PRN (08:35)
[2021-01-01] MEDS ORDERED: Sodium Chloride 0.9% 10 ML SDV IV PRN (08:35)
[2021-01-01] MEDS ORDERED: Sodium Chloride 0.9% 2.5 ML Syringe FLUSH PRN (08:35)
[2021-01-01 08:56] LABS: HEMOGLOBIN A1C 5.3 %
[2021-01-01] MEDS: Lactated Ringers 1,000 ML IV SCH ×2 (10:26→20:08)
--- NOTE | 2021-01-01 11:01 | PCM.HP.2 ---
H&P History of Present Illness - General Date of Service: 01/01/21 Admit Problem/Dx: Admission Diagnosis/Problem Admission Diagnosis/Problem Acute cholecystitis Source of Information: Patient History Limitations: Reports: No Limitations - History of Present Illness Initial Comments - Free Text/Narative: Patient is a 35-year-old female who presents with acute severe right upper quadrant pain. She states that 2 days ago she developed this pain. It came on suddenly. She has never had any similar pain in the past. She denies any radiating symptoms. She tried Tylenol with no improvement in her symptoms. She denied any nausea or vomiting along with this. She had a normal bowel movement 3 days ago. She presented the emergency room last evening. Her vital signs were stable upon admission. A CBC was performed which was normal. LFTs and bilirubin were normal. Right upper quadrant ultrasound showed thickening of the gallbladder wall associated with gallstones. There is a question of emphysematous cholecystitis. A CT scan was performed. This showed pericholecystic fluid around a thickened and dilated gallbladder consistent with acute cholecystitis and not emphysematous cholecystitis. She was admitted to the hospital given IV fluids, IV antibiotics, and kept nothing by mouth. She had 1 dose of Dilaudid in the emergency room with good improvement of her pain. She is able to sleep after that. She woke up this morning and the pain is still ongoing. Her vital signs of been stable overnight. Upon admission the patient tested positive for Covid however she denies having any upper respiratory symptoms in the last 3 months. She denies fevers chills shortness of breath and runny nose headache nausea or vomiting. Abdomen Pain Score (Numeric/FACES): 0 - Related Data Allergies/Adverse Reactions: Allergies Allergy/AdvReac Type Severity Reaction Status Date / Time No Known Allergies Allergy Verified 01/01/21 07:42 Home Medications: Home Meds . 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 Hematologic History: Reports: None Immunologic History: Reports: None Oncologic (Cancer) History: Reports: None Dermatologic History: Reports: None - Infectious Disease History Infectious Disease History: Reports: None - Past Surgical History Head Surgeries/Procedures: Reports: None Female Surgical History: Reports: Section Social & Family History - Family History Family Medical History: No Pertinent Family History - Caffeine Use Caffeine Use: Reports: None - Recreational Drug Use Recreational Drug Use: No H&P Review of Systems - Review of Systems: Review Of Systems: Comprehensive ROS is negative, except as noted in HPI. Exam - Exam Exam: See Below - Vital Signs Vital Signs: Last Vital Signs Temp 36.5 C 01/01/21 08:54 Pulse 63 01/01/21 08:54 Resp 12 01/01/21 08:54 BP 108/71 01/01/21 08:54 Pulse Ox 97 01/01/21 08:54 Weight: 64.864 kg - Exam General: Alert, Oriented HEENT: Conjunctiva Clear, Mucosa Moist & [place], Posterior Pharynx Clear Lungs: Clear to Auscultation, Normal Respiratory Effort Cardiovascular: Regular Rate, Regular Rhythm GI/Abdominal Exam: Soft, No Distention, No Mass, Tender (RUQ with deep palpation ) Extremities: Normal Inspection, Normal Range of Motion - Patient Data Lab Results Last 24 hrs: Laboratory Results - last 24 hr 12/31/20 12/31/20 12/31/20 Range/Units 21:35 21:35 22:10 WBC 7.03 (4.0-11.0) K/uL RBC 4.95 (4.30-5.90) M/uL Hgb 12.8 (12.0-16.0) g/dL Hct 38.5 (36.0-46.0) % MCV 77.8 L (80.0-98.0) fL MCH 25.9 L (27.0-32.0) pg MCHC 33.2 (31.0-37.0) g/dL RDW Std Deviation 42.7 (28.0-62.0) fl RDW Coeff of Klasu 15 (11.0-15.0) % Plt Count 183 (150-400) K/uL MPV 12.30 H (7.40-12.00) fL Neut % (Auto) 71.5 (48.0-80.0) % Lymph % (Auto) 20.1 (16.0-40.0) % Gilliam % (Auto) 7.1 (0.0-15.0) % Eos % (Auto) 1.0 (0.0-7.0) % Baso % (Auto) 0.3 (0.0-1.5) % Neut # (Auto) 5.0 (1.4-5.7) K/uL Lymph # (Auto) 1.4 (0.6-2.4) K/uL Gilliam # (Auto) 0.5 (0.0-0.8) K/uL Eos # (Auto) 0.1 (0.0-0.7) K/uL Baso # (Auto) 0.0 (0.0-0.1) K/uL Nucleated RBC % 0.0 /100WBC Nucleated RBCs # 0 K/uL Sodium (136-145) mmol/L Potassium (3.5-5.1) mmol/L Chloride (98-107) mmol/L Carbon Dioxide (21.0-32.0) mmol/L BUN (7.0-18.0) mg/dL Creatinine (0.6-1.0) mg/dL Est Cr Clr Drug Dosing Estimated GFR (MDRD) ml/min Glucose (74-106) mg/dL Hemoglobin A1c (4.5 - 6.2) % Calcium (8.5-10.1) mg/dL Total Bilirubin (0.2-1.0) mg/dL AST (15-37) IU/L ALT (14-63) IU/L Alkaline Phosphatase (46-116) U/L Total Protein (6.4-8.2) g/dL Albumin (3.4-5.0) g/dL Globulin (2.6-4.0) g/dL Albumin/Globulin Ratio (0.9-1.6) Lipase (73-393) U/L Urine Color YELLOW Urine Appearance CLEAR Urine pH 7.0 (5.0-8.0) Ur Specific Mark 1.020 (1.001-1.035) Urine Protein NEGATIVE (NEGATIVE) mg/dL Urine Glucose (UA) NEGATIVE (NEGATIVE) mg/dL Urine Ketones NEGATIVE (NEGATIVE) mg/dL Urine Occult Blood NEGATIVE (NEGATIVE) Urine Nitrite NEGATIVE (NEGATIVE) Urine Bilirubin NEGATIVE (NEGATIVE) Urine Urobilinogen 0.2 (<2.0) EU/dL Ur Leukocyte Esterase TRACE H (NEGATIVE) Urine RBC 0-1 (0-2/HPF) Urine WBC 1-3 (0-5/HPF) Ur Epithelial Cells FEW (NONE-FEW) Urine Bacteria 1+ H (NEGATIVE) Urine Mucus LIGHT (NONE-MOD) Urine HCG, Qual NEGATIVE (NEGATIVE) SARS-CoV-2 RNA (GILDA) (NEGATIVE) Blood Type Antibody Screen 12/31/20 01/01/21 01/01/21 Range/Units 22:10 00:10 01:03 WBC (4.0-11.0) K/uL RBC (4.30-5.90) M/uL Hgb (12.0-16.0) g/dL Hct (36.0-46.0) % MCV (80.0-98.0) fL MCH (27.0-32.0) pg MCHC (31.0-37.0) g/dL RDW Std Deviation (28.0-62.0) fl RDW Coeff of Klaus (11.0-15.0) % Plt Count (150-400) K/uL MPV (7.40-12.00) fL Neut % (Auto) (48.0-80.0) % Lymph % (Auto) (16.0-40.0) % Gilliam % (Auto) (0.0-15.0) % Eos % (Auto) (0.0-7.0) % Baso % (Auto) (0.0-1.5) % Neut # (Auto) (1.4-5.7) K/uL Lymph # (Auto) (0.6-2.4) K/uL Gilliam # (Auto) (0.0-0.8) K/uL Eos # (Auto) (0.0-0.7) K/uL Baso # (Auto) (0.0-0.1) K/uL Nucleated RBC % /100WBC Nucleated RBCs # K/uL Sodium 136 (136-145) mmol/L Potassium 3.6 (3.5-5.1) mmol/L Chloride 101 (98-107) mmol/L Carbon Dioxide 29.7 (21.0-32.0) mmol/L BUN 6 L (7.0-18.0) mg/dL Creatinine 0.8 (0.6-1.0) mg/dL Est Cr Clr Drug Dosing TNP Estimated GFR (MDRD) > 60.0 ml/min Glucose 100 (74-106) mg/dL Hemoglobin A1c (4.5 - 6.2) % Calcium 9.1 (8.5-10.1) mg/dL Total Bilirubin 0.2 (0.2-1.0) mg/dL AST 27 (15-37) IU/L ALT 36 (14-63) IU/L Alkaline Phosphatase 70 (46-116) U/L Total Protein 8.4 H (6.4-8.2) g/dL Albumin 3.6 (3.4-5.0) g/dL Globulin 4.8 H (2.6-4.0) g/dL Albumin/Globulin Ratio 0.8 L (0.9-1.6) Lipase 61 L (73-393) U/L Urine Color Urine Appearance Urine pH (5.0-8.0) Ur Specific Mark (1.001-1.035) Urine Protein (NEGATIVE) mg/dL Urine Glucose (UA) (NEGATIVE) mg/dL Urine Ketones (NEGATIVE) mg/dL Urine Occult Blood (NEGATIVE) Urine Nitrite (NEGATIVE) Urine Bilirubin (NEGATIVE) Urine Urobilinogen (<2.0) EU/dL Ur Leukocyte Esterase (NEGATIVE) Urine RBC (0-2/HPF) Urine WBC (0-5/HPF) Ur Epithelial Cells (NONE-FEW) Urine Bacteria (NEGATIVE) Urine Mucus (NONE-MOD) Urine HCG, Qual (NEGATIVE) SARS-CoV-2 RNA (GILDA) POSITIVE H (NEGATIVE) Blood Type O POSITIVE Antibody Screen NEGATIVE 01/01/21 01/01/21 01/01/21 Range/Units 05:15 05:15 05:15 WBC 5.26 (4.0-11.0) K/uL RBC 4.61 (4.30-5.90) M/uL Hgb 11.7 L (12.0-16.0) g/dL Hct 36.1 (36.0-46.0) % MCV 78.3 L (80.0-98.0) fL MCH 25.4 L (27.0-32.0) pg MCHC 32.4 (31.0-37.0) g/dL RDW Std Deviation 43.3 (28.0-62.0) fl RDW Coeff of Klaus 15 (11.0-15.0) % Plt Count 179 (150-400) K/uL MPV 11.10 (7.40-12.00) fL Neut % (Auto) 59.8 (48.0-80.0) % Lymph % (Auto) 31.6 (16.0-40.0) % Gilliam % (Auto) 7.6 (0.0-15.0) % Eos % (Auto) 0.8 (0.0-7.0) % Baso % (Auto) 0.2 (0.0-1.5) % Neut # (Auto) 3.2 (1.4-5.7) K/uL Lymph # (Auto) 1.7 (0.6-2.4) K/uL Gilliam # (Auto) 0.4 (0.0-0.8) K/uL Eos # (Auto) 0.0 (0.0-0.7) K/uL Baso # (Auto) 0.0 (0.0-0.1) K/uL Nucleated RBC % 0.0 /100WBC Nucleated RBCs # 0 K/uL Sodium 137 (136-145) mmol/L Potassium 3.7 (3.5-5.1) mmol/L Chloride 103 (98-107) mmol/L Carbon Dioxide 26.6 (21.0-32.0) mmol/L BUN 6 L (7.0-18.0) mg/dL Creatinine 0.8 (0.6-1.0) mg/dL Est Cr Clr Drug Dosing 74.15 Estimated GFR (MDRD) > 60.0 ml/min Glucose 95 (74-106) mg/dL Hemoglobin A1c 5.3 (4.5 - 6.2) % Calcium 9.0 (8.5-10.1) mg/dL Total Bilirubin 0.4 (0.2-1.0) mg/dL AST 52 H (15-37) IU/L ALT 47 (14-63) IU/L Alkaline Phosphatase 69 (46-116) U/L Total Protein 7.4 (6.4-8.2) g/dL Albumin 3.1 L (3.4-5.0) g/dL Globulin 4.3 H (2.6-4.0) g/dL Albumin/Globulin Ratio 0.7 L (0.9-1.6) Lipase (73-393) U/L Urine Color Urine Appearance Urine pH (5.0-8.0) Ur Specific Mark (1.001-1.035) Urine Protein (NEGATIVE) mg/dL Urine Glucose (UA) (NEGATIVE) mg/dL Urine Ketones (NEGATIVE) mg/dL Urine Occult Blood (NEGATIVE) Urine Nitrite (NEGATIVE) Urine Bilirubin (NEGATIVE) Urine Urobilinogen (<2.0) EU/dL Ur Leukocyte Esterase (NEGATIVE) Urine RBC (0-2/HPF) Urine WBC (0-5/HPF) Ur Epithelial Cells (NONE-FEW) Urine Bacteria (NEGATIVE) Urine Mucus (NONE-MOD) Urine HCG, Qual (NEGATIVE) SARS-CoV-2 RNA (GILDA) (NEGATIVE) Blood Type Antibody Screen Result Diagrams: 01/01/21 05:15 01/01/21 05:15 Sepsis Event Note - Evaluation Sepsis Screening Result: No Definite Risk - Focused Exam Vital Signs: Vital Signs Temp Pulse Resp BP Pulse Ox 01/01/21 08:54 36.5 C 63 12 108/71 97 01/01/21 08:00 36.3 C 64 16 118/78 98 01/01/21 04:44 36.3 C 64 18 118/86 100 01/01/21 01:50 36.3 C 67 19 116/75 96 01/01/21 00:49 36.2 C 68 18 157/98 H 97 12/31/20 23:15 65 18 132/86 97 - Problem List (1) Cholecystitis SNOMED Code(s): 41616543 ICD Code: K81.9 - CHOLECYSTITIS, UNSPECIFIED Status: Acute Current Visit: Yes Problem List Initiated/Reviewed/Updated: Yes Orders Last 24hrs: Active Orders 24 hr Category Date Time Status Patient Status [ADT] Routine ADT 01/01/21 08:35 Active Antiembolic Devices [RC] .Routine Care 01/01/21 08:37 Active Intake and Output [RC] Q12H Care 01/01/21 08:36 Active May Shower [RC] ASDIRECTED Care 01/01/21 08:35 Active Oxygen Therapy [RC] PRN Care 01/01/21 08:35 Active RT Incentive Spirometry [RC] Q1HWA Care 01/01/21 08:35 Active Up ad Francesca [RC] ASDIRECTED Care 01/01/21 08:35 Active VTE/DVT Education [RC] PER UNIT ROUTINE Care 01/01/21 08:37 Active Vital Signs [RC] PER UNIT ROUTINE Care 01/01/21 08:35 Active Clear Liquid Diet [DIET] Diet 01/01/21 Breakfast Active Acetaminophen/oxyCODONE [Percocet 325-5 MG] Med 01/01/21 01:32 Active 1 - 2 tab PO Q4H PRN HYDROmorphone [Dilaudid] Med 01/01/21 01:30 Active 0.5 mg IVPUSH Q1H PRN Lactated Ringers [Ringers, Lactated] 1,000 ml Med 12/31/20 22:15 Active IV ASDIRECTED Lactated Ringers [Ringers, Lactated] 1,000 ml Med 01/01/21 00:15 Active IV ASDIRECTED Lactated Ringers [Ringers, Lactated] 1,000 ml Med 01/01/21 01:45 Active IV ASDIRECTED Ondansetron [Zofran] Med 01/01/21 01:34 Active 4 mg IVPUSH Q4H PRN Piperacillin/Tazobactam [Piperacil-Tazobact] 3.375 gm Med 01/01/21 01:45 Ac tive Sodium Chloride 0.9% [Normal Saline] 50 ml IV Q6H Sodium Chloride 0.9% [Normal Saline] Med 01/01/21 08:35 Active 10 ml IV ASDIRECTED PRN Sodium Chloride 0.9% [Saline Flush] Med 01/01/21 08:35 Active 10 ml FLUSH ASDIRECTED PRN Sodium Chloride 0.9% [Saline Flush] Med 01/01/21 08:35 Active 2.5 ml FLUSH ASDIRECTED PRN DVT/VTE Prophylaxis Reflex [OM.PC] Routine Oth 01/01/21 08:35 Ordered Peripheral IV Insertion Adult [OM.PC] Urgent Oth 01/01/21 08:35 Ordered Resuscitation Status Routine Resus Stat 01/01/21 08:35 Ordered Assessment/Plan Comment:: The patient and I discussed the pathophysiology of biliary disease. For acute cholelithiasis, treatment is removal of the gallbladder. The patient and I discussed the laparoscopic and open approach to cholecystectomy. Should I be unable to remove the gallbladder safely via the laparoscopic approach I will convert to open. The patient was in pain and very tired this morning. I will need to speak with our anesthesia team regarding her Covid-positive status and the timing of surgery. We'll allow the patient to have a clear liquid diet today. Continue IV fluids and IV antibiotics for now pain control with IV or oral narcotics. We'll hopefully add on for surgery tomorrow. We'll discuss further details about this with the patient later on.
--- NOTE | 2021-01-01 13:03 | PCM.SN.2 ---
- Free Text/Narrative Note: When reviewing the patient's imaging this morning, I noticed that she has a left adnexal fluid collection on CT scan which the radiologist felt could be a hydrosalpinx. To work this up further, I ordered a transvaginal pelvic ultrasound. I also consulted gynecology. When I visited with the patient's afternoon she was still having right upper quadrant abdominal pain. I consented the patient for surgery tomorrow. The patient and I discussed the laparoscopic and open approach to cholecystectomy. Should I be unable to remove the gallbladder safely via the laparoscopic approach I will convert to open. We discussed the expected perioperative course as well as the risks including bleeding infection or damage to surrounding structures. Patient verbalized understanding and wishes to proceed. The patient also agreed to blood transfusion if needed for life saving measures. Patient etelvina l be made nothing by mouth at midnight.
--- NOTE | 2021-01-01 16:12 | PCM.CONS ---
H&P History of Present Illness - General Date of Service: 01/01/21 Admit Problem/Dx: Admission Diagnosis/Problem Admission Diagnosis/Problem Acute cholecystitis - History of Present Illness Initial Comments - Free Text/Narative: 35 year old female presented to the ED last evening with right upper quadrant pain she was found to have acute cholecystitis on CT abdomen/pelvis. Dr. Johnson has admitted the patient for this diagnosis and is planning on taking the patient to surgery tomorrow for a cholecystectomy. In addition, on the CT, an incidental finding of a 5 x 1.5cm tubular structure was noted within the left adnexa, concerning for hydrosalpinx. I was consulted to assess possible for left salpingectomy at the time of patient's scheduled surgery tomorrow. Upon my arrival to the patient's room, she is resting in bed. Due to moderate language barrier, the patient called her to help translate. She stated that her right upper pain was controlled at that time. Denies history of pelvic pain prior to admission. Of note, she tested positive for COVID-19 upon arrival to the ED. Denies fever/chills, shortness of air, chest pain, loss of taste or smell. Has a complicated obstetrical history including an emergent section at 36wga in 2018 due to placental abruption/previa and she subsequently developed DIC, requiring multiple blood transfusions. Abdomen Pain Score (Numeric/FACES): 0 - Related Data Allergies/Adverse Reactions: Allergies Allergy/AdvReac Type Severity Reaction Status Date / Time No Known Allergies Allergy Verified 01/01/21 07:42 Home Medications: Home Meds . 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 Hematologic History: Reports: None Immunologic History: Reports: None Oncologic (Cancer) History: Reports: None Dermatologic History: Reports: None - Infectious Disease History Infectious Disease History: Reports: None - Past Surgical History Head Surgeries/Procedures: Reports: None Female Surgical History: Reports: Section Social & Family History - Family History Family Medical History: No Pertinent Family History - Caffeine Use Caffeine Use: Reports: None - Recreational Drug Use Recreational Drug Use: No H&P Review of Systems - Review of Systems: Review Of Systems: See Below General: Reports: Fatigue HEENT: Reports: No Symptoms Pulmonary: Reports: No Symptoms Cardiovascular: Reports: No Symptoms Gastrointestinal: Reports: Abdominal Pain (RUQ) Genitourinary: Reports: No Symptoms Musculoskeletal: Reports: No Symptoms Skin: Reports: No Symptoms Psychiatric: Reports: No Symptoms Neurological: Reports: No Symptoms Hematologic/Lymphatic: Reports: No Symptoms Exam - Exam Exam: See Below - Vital Signs Vital Signs: Last Vital Signs Temp 97.7 F 01/01/21 15:25 Pulse 63 01/01/21 15:25 Resp 12 01/01/21 15:25 BP 105/74 01/01/21 15:25 Pulse Ox 96 01/01/21 15:25 Weight: 143 lb - Exam General: Alert Lungs: Normal Respiratory Effort Cardiovascular: Regular Rate GI/Abdominal Exam: Normal Bowel Sounds, Soft, Tender (mild, RUQ) (Female) Exam: Normal External Exam Rectal (Female) Exam: Deferred Extremities: Normal Inspection, Normal Range of Motion, Non-Tender Skin: Warm, Dry, Intact Psychiatric: Normal Mood - Patient Data Lab Results Last 24 hrs: Laboratory Results - last 24 hr 12/31/20 12/31/20 12/31/20 Range/Units 21:35 21:35 22:10 WBC 7.03 (4.0-11.0) K/uL RBC 4.95 (4.30-5.90) M/uL Hgb 12.8 (12.0-16.0) g/dL Hct 38.5 (36.0-46.0) % MCV 77.8 L (80.0-98.0) fL MCH 25.9 L (27.0-32.0) pg MCHC 33.2 (31.0-37.0) g/dL RDW Std Deviation 42.7 (28.0-62.0) fl RDW Coeff of Klaus 15 (11.0-15.0) % Plt Count 183 (150-400) K/uL MPV 12.30 H (7.40-12.00) fL Neut % (Auto) 71.5 (48.0-80.0) % Lymph % (Auto) 20.1 (16.0-40.0) % [place] % (Auto) 7.1 (0.0-15.0) % Eos % (Auto) 1.0 (0.0-7.0) % Baso % (Auto) 0.3 (0.0-1.5) % Neut # (Auto) 5.0 (1.4-5.7) K/uL Lymph # (Auto) 1.4 (0.6-2.4) K/uL [place] # (Auto) 0.5 (0.0-0.8) K/uL Eos # (Auto) 0.1 (0.0-0.7) K/uL Baso # (Auto) 0.0 (0.0-0.1) K/uL Nucleated RBC % 0.0 /100WBC Nucleated RBCs # 0 K/uL Sodium (136-145) mmol/L Potassium (3.5-5.1) mmol/L Chloride (98-107) mmol/L Carbon Dioxide (21.0-32.0) mmol/L BUN (7.0-18.0) mg/dL Creatinine (0.6-1.0) mg/dL Est Cr Clr Drug Dosing Estimated GFR (MDRD) ml/min Glucose (74-106) mg/dL Hemoglobin A1c (4.5 - 6.2) % Calcium (8.5-10.1) mg/dL Total Bilirubin (0.2-1.0) mg/dL AST (15-37) IU/L ALT (14-63) IU/L Alkaline Phosphatase (46-116) U/L Total Protein (6.4-8.2) g/dL Albumin (3.4-5.0) g/dL Globulin (2.6-4.0) g/dL Albumin/Globulin Ratio (0.9-1.6) Lipase (73-393) U/L Urine Color YELLOW Urine Appearance CLEAR Urine pH 7.0 (5.0-8.0) Ur Specific [place] 1.020 (1.001-1.035) Urine Protein NEGATIVE (NEGATIVE) mg/dL Urine Glucose (UA) NEGATIVE (NEGATIVE) mg/dL Urine Ketones NEGATIVE (NEGATIVE) mg/dL Urine Occult Blood NEGATIVE (NEGATIVE) Urine Nitrite NEGATIVE (NEGATIVE) Urine Bilirubin NEGATIVE (NEGATIVE) Urine Urobilinogen 0.2 (<2.0) EU/dL Ur Leukocyte Esterase TRACE H (NEGATIVE) Urine RBC 0-1 (0-2/HPF) Urine WBC 1-3 (0-5/HPF) Ur Epithelial Cells FEW (NONE-FEW) Urine Bacteria 1+ H (NEGATIVE) Urine Mucus LIGHT (NONE-MOD) Urine HCG, Qual NEGATIVE (NEGATIVE) SARS-CoV-2 RNA (GLIDA) (NEGATIVE) Blood Type Antibody Screen 12/31/20 01/01/21 01/01/21 Range/Units 22:10 00:10 01:03 WBC (4.0-11.0) K/uL RBC (4.30-5.90) M/uL Hgb (12.0-16.0) g/dL Hct (36.0-46.0) % MCV (80.0-98.0) fL MCH (27.0-32.0) pg MCHC (31.0-37.0) g/dL RDW Std Deviation (28.0-62.0) fl RDW Coeff of Klaus (11.0-15.0) % Plt Count (150-400) K/uL MPV (7.40-12.00) fL Neut % (Auto) (48.0-80.0) % Lymph % (Auto) (16.0-40.0) % [place] % (Auto) (0.0-15.0) % Eos % (Auto) (0.0-7.0) % Baso % (Auto) (0.0-1.5) % Neut # (Auto) (1.4-5.7) K/uL Lymph # (Auto) (0.6-2.4) K/uL [place] # (Auto) (0.0-0.8) K/uL Eos # (Auto) (0.0-0.7) K/uL Baso # (Auto) (0.0-0.1) K/uL Nucleated RBC % /100WBC Nucleated RBCs # K/uL Sodium 136 (136-145) mmol/L Potassium 3.6 (3.5-5.1) mmol/L Chloride 101 (98-107) mmol/L Carbon Dioxide 29.7 (21.0-32.0) mmol/L BUN 6 L (7.0-18.0) mg/dL Creatinine 0.8 (0.6-1.0) mg/dL Est Cr Clr Drug Dosing TNP Estimated GFR (MDRD) > 60.0 ml/min Glucose 100 (74-106) mg/dL Hemoglobin A1c (4.5 - 6.2) % Calcium 9.1 (8.5-10.1) mg/dL Total Bilirubin 0.2 (0.2-1.0) mg/dL AST 27 (15-37) IU/L ALT 36 (14-63) IU/L Alkaline Phosphatase 70 (46-116) U/L Total Protein 8.4 H (6.4-8.2) g/dL Albumin 3.6 (3.4-5.0) g/dL Globulin 4.8 H (2.6-4.0) g/dL Albumin/Globulin Ratio 0.8 L (0.9-1.6) Lipase 61 L (73-393) U/L Urine Color Urine Appearance Urine pH (5.0-8.0) Ur Specific [place] (1.001-1.035) Urine Protein (NEGATIVE) mg/dL Urine Glucose (UA) (NEGATIVE) mg/dL Urine Ketones (NEGATIVE) mg/dL Urine Occult Blood (NEGATIVE) Urine Nitrite (NEGATIVE) Urine Bilirubin (NEGATIVE) Urine Urobilinogen (<2.0) EU/dL Ur Leukocyte Esterase (NEGATIVE) Urine RBC (0-2/HPF) Urine WBC (0-5/HPF) Ur Epithelial Cells (NONE-FEW) Urine Bacteria (NEGATIVE) Urine Mucus (NONE-MOD) Urine HCG, Qual (NEGATIVE) SARS-CoV-2 RNA (GILDA) POSITIVE H (NEGATIVE) Blood Type O POSITIVE Antibody Screen NEGATIVE 01/01/21 01/01/21 01/01/21 Range/Units 05:15 05:15 05:15 WBC 5.26 (4.0-11.0) K/uL RBC 4.61 (4.30-5.90) M/uL Hgb 11.7 L (12.0-16.0) g/dL Hct 36.1 (36.0-46.0) % MCV 78.3 L (80.0-98.0) fL MCH 25.4 L (27.0-32.0) pg MCHC 32.4 (31.0-37.0) g/dL RDW Std Deviation 43.3 (28.0-62.0) fl RDW Coeff of Klaus 15 (11.0-15.0) % Plt Count 179 (150-400) K/uL MPV 11.10 (7.40-12.00) fL Neut % (Auto) 59.8 (48.0-80.0) % Lymph % (Auto) 31.6 (16.0-40.0) % [place] % (Auto) 7.6 (0.0-15.0) % Eos % (Auto) 0.8 (0.0-7.0) % Baso % (Auto) 0.2 (0.0-1.5) % Neut # (Auto) 3.2 (1.4-5.7) K/uL Lymph # (Auto) 1.7 (0.6-2.4) K/uL [place] # (Auto) 0.4 (0.0-0.8) K/uL Eos # (Auto) 0.0 (0.0-0.7) K/uL Baso # (Auto) 0.0 (0.0-0.1) K/uL Nucleated RBC % 0.0 /100WBC Nucleated RBCs # 0 K/uL Sodium 137 (136-145) mmol/L Potassium 3.7 (3.5-5.1) mmol/L Chloride 103 (98-107) mmol/L Carbon Dioxide 26.6 (21.0-32.0) mmol/L BUN 6 L (7.0-18.0) mg/dL Creatinine 0.8 (0.6-1.0) mg/dL Est Cr Clr Drug Dosing 74.15 Estimated GFR (MDRD) > 60.0 ml/min Glucose 95 (74-106) mg/dL Hemoglobin A1c 5.3 (4.5 - 6.2) % Calcium 9.0 (8.5-10.1) mg/dL Total Bilirubin 0.4 (0.2-1.0) mg/dL AST 52 H (15-37) IU/L ALT 47 (14-63) IU/L Alkaline Phosphatase 69 (46-116) U/L Total Protein 7.4 (6.4-8.2) g/dL Albumin 3.1 L (3.4-5.0) g/dL Globulin 4.3 H (2.6-4.0) g/dL Albumin/Globulin Ratio 0.7 L (0.9-1.6) Lipase (73-393) U/L Urine Color Urine Appearance Urine pH (5.0-8.0) Ur Specific [place] (1.001-1.035) Urine Protein (NEGATIVE) mg/dL Urine Glucose (UA) (NEGATIVE) mg/dL Urine Ketones (NEGATIVE) mg/dL Urine Occult Blood (NEGATIVE) Urine Nitrite (NEGATIVE) Urine Bilirubin (NEGATIVE) Urine Urobilinogen (<2.0) EU/dL Ur Leukocyte Esterase (NEGATIVE) Urine RBC (0-2/HPF) Urine WBC (0-5/HPF) Ur Epithelial Cells (NONE-FEW) Urine Bacteria (NEGATIVE) Urine Mucus (NONE-MOD) Urine HCG, Qual (NEGATIVE) SARS-CoV-2 RNA (GILDA) (NEGATIVE) Blood Type Antibody Screen Result Diagrams: 01/01/21 05:15 01/01/21 05:15 Sepsis Event Note - Evaluation Sepsis Screening Result: No Definite Risk - Focused Exam Vital Signs: Vital Signs Temp Pulse Resp BP Pulse Ox 01/01/21 15:25 97.7 F 63 12 105/74 96 01/01/21 11:54 97.3 F 56 L 12 111/72 98 01/01/21 08:54 97.7 F 63 12 108/71 97 01/01/21 08:00 97.3 F 64 16 118/78 98 01/01/21 04:44 97.3 F 64 18 118/86 100 Consult PN Assessment/Plan Procedures: Procedures ALPHA-FETOPROTEIN SERUM (07/09/17) ASSAY OF ESTRIOL (07/09/17) ASSAY THYROID STIM HORMONE (12/08/19) BLOOD TYPING SEROLOGIC ABO (07/09/17) BLOOD TYPING SEROLOGIC RH(D) (07/09/17) NEIL DNA DIR PROBE (07/14/19) CHORIONIC GONADOTROPIN TEST (07/09/17) CHYLMD TRACH DNA AMP PROBE (07/14/19) COMPLETE CBC AUTOMATED (01/28/18) COMPLETE CBC W/AUTO DIFF WBC (12/08/19) COMPREHEN METABOLIC PANEL (12/08/19) CULTURE SCREEN ONLY (11/29/17) DRUG TEST PRSMV DIR OPT OBS (07/09/17) EMERGENCY DEPT VISIT (08/07/17) EMERGENCY DEPT VISIT (08/19/15) WALLER VAG DNA DIR PROBE (07/14/19) GLUCOSE TEST (10/08/17) HEMATOCRIT (11/14/15) HEMOGLOBIN (11/14/15) HEPATITIS B SURFACE AG IA (07/09/17) HEPATITIS C AB TEST (07/09/17) HIV-1 AG W/HIV-1 & -2 AB AG IA (07/09/17) INHIBIN A (07/09/17) LIPID PANEL (12/08/19) N.GONORRHOEAE DNA AMP PROB (07/14/19) OB US < 14 WKS SINGLE FETUS (05/14/17) OB US >/= 14 WKS SNGL FETUS (08/06/17) OB US FOLLOW-UP PER FETUS (10/15/17) RBC ANTIBODY SCREEN (10/08/17) RBC SED RATE AUTOMATED (12/08/19) ROUTINE VENIPUNCTURE (12/08/19) RUBELLA ANTIBODY (07/09/17) SYPHILIS TEST NON-TREP QUAL (07/09/17) TRICHOMONAS VAGIN DIR PROBE (07/14/19) URINALYSIS AUTO W/O SCOPE (07/14/19) URINALYSIS AUTO W/SCOPE (08/19/15) URINE CULTURE/COLONY COUNT (07/09/17) URINE TEST (10/27/19) (1) Abnormal CT scan SNOMED Code(s): 930268196 Code(s): R93.89 - ABNORMAL FINDINGS ON DX IMAGING OF OTH BODY STRUCTURES Current Visit: Yes (2) Cholecystitis SNOMED Code(s): 46986415 Code(s): K81.9 - CHOLECYSTITIS, UNSPECIFIED Current Visit: Yes Problem List Initiated/Reviewed/Updated: Yes Plan: 35 year old female with acute cholecystitis and abnormal pelvic imaging on CT scan Acute cholecystitis * Plan to proceed with cholecystectomy with Dr. Johnson tomorrow (01/02/2021) Abnormal pelvic imaging on CT scan * CT abdomen/pelvis: 5 x1.5cm tubal appearing structure within the left adnexa * TVUS: Mild thickening of the endometrial lining (13mm), mild amount of free fluid within the pelvis. Several simple appearing cysts in the left ovary in a linear array along the anterior surface The largest cyst measures 2.0cm. Hydrosalpinx is not identifiable on ultrasound. - I reviewed the CT imaging and TVUS with Dr. Nahid Wong this afternoon, agree with findings. * Urine negative. Dispo: stable. Reviewd above findings with the patient and Dr. Johnson. No surgical intervention is indicated at this time. Recommended patient follow up with Dr. Oakes for a repeat pelvic ultrasound in 4-6 weeks to assess left ovary. Nursing staff at [facility] to assist patient with making follow up appointment. Thank you for your consultation in regards to Ms. Deana.
--- NOTE | 2021-01-01 16:15 | US ---
INDICATION: Left adnexal abnormality on CT. COMPARISON: CT of the abdomen and pelvis from earlier today. FINDINGS: Transvaginal ultrasound examination of the female pelvis was performed. The uterus is anteverted with no evidence of mass. It measures 8.6 x 5.6 x 4.5 cm. The endometrial lining is mildly increased in thickness at 13 mm. There are multiple simple cysts located along the anterior aspect of the left ovary in a rather linear arrangement, the largest cyst located superiorly measuring 2.0 x 1.3 x 1.7 centimeters and the 2nd largest cyst located inferiorly and medially measuring 1.6 x 1.1 x 1.2 centimeters. Several other smaller cysts are present in this same region, forming a somewhat linear array of cysts, that correspond to the appearance of possible left hydrosalpinx. I do not believe that a hydrosalpinx is present, with the cysts producing an enlarged, elongated left ovary measuring 4.0 x 3.3 x 1.8 centimeters. The right ovary has a few normal appearing follicular cysts within it. The right ovary is normal in size measuring 2.2 x 1.9 x 1.7 centimeters. There is normal color and pulse doppler flow in both ovaries. As seen on CT, there is a mild amount of free fluid in the pelvis, nonspecific. I discussed the findings with Dr. Magaña at 1605 hours on 01/01/2021. IMPRESSION: Several simple cysts in the left ovary in a relatively linear array along the anterior surface of the mildly enlarged left ovary, accounting for the appearance of hydrosalpinx on the recent CT. The largest cyst measures 2.0 centimeters in diameter. A hydrosalpinx is not identifiable on ultrasound today. Mild thickening of the endometrial lining, nonspecific. Mild amount of free fluid in the pelvis, nonspecific. Dictated by Nahid Wong MD @ Jan 01 2021 4:02PM Signed by Dr. Nahid Wong @ Jan 01 2021 4:14PM
--- NOTE | 2021-01-01 20:01 | PCM.PREANE ---
Preanesthetic Assessment - Anesthesia/Transfusion/Family Hx Anesthesia History: Prior Anesthesia Without Reaction Transfusion History: Unknown Intubation History: Unknown - Review of Systems General: No Symptoms Pulmonary: No Symptoms Cardiovascular: No Symptoms Gastrointestinal: Abdominal Pain Neurological: No Symptoms Other: Reports: None - Physical Assessment NPO Status Date: 01/02/21 NPO Status Time: 00:00 Vital Signs: Last Vital Signs Temp 36.4 C 01/01/21 19:53 Pulse 71 01/01/21 19:53 Resp 16 01/01/21 19:53 BP 130/88 01/01/21 19:53 Pulse Ox 100 01/01/21 19:53 Height: 1.55 m Weight: 64.864 kg ASA Class: 2 Mental Status: Alert & Oriented x3 Airway Class: Mallampati = 3 Dentition: Reports: Normal Dentition Thyro-Mental Finger Breadths: 3 Mouth Opening Finger Breadths: 2 (small mouth opening) ROM/Head Extension: Full Lungs: Clear to Auscultation, Normal Respiratory Effort - Lab Values: Laboratory Last Values WBC 5.26 K/uL (4.0-11.0) 01/01/21 05:15 RBC 4.61 M/uL (4.30-5.90) 01/01/21 05:15 Hgb 11.7 g/dL (12.0-16.0) L 01/01/21 05:15 Hct 36.1 % (36.0-46.0) 01/01/21 05:15 MCV 78.3 fL (80.0-98.0) L 01/01/21 05:15 MCH 25.4 pg (27.0-32.0) L 01/01/21 05:15 MCHC 32.4 g/dL (31.0-37.0) 01/01/21 05:15 RDW Std Deviation 43.3 fl (28.0-62.0) 01/01/21 05:15 RDW Coeff of Klaus 15 % (11.0-15.0) 01/01/21 05:15 Plt Count 179 K/uL (150-400) 01/01/21 05:15 MPV 11.10 fL (7.40-12.00) 01/01/21 05:15 Neut % (Auto) 59.8 % (48.0-80.0) 01/01/21 05:15 Lymph % (Auto) 31.6 % (16.0-40.0) 01/01/21 05:15 [place] % (Auto) 7.6 % (0.0-15.0) 01/01/21 05:15 Eos % (Auto) 0.8 % (0.0-7.0) 01/01/21 05:15 Baso % (Auto) 0.2 % (0.0-1.5) 01/01/21 05:15 Neut # (Auto) 3.2 K/uL (1.4-5.7) 01/01/21 05:15 Lymph # (Auto) 1.7 K/uL (0.6-2.4) 01/01/21 05:15 [place] # (Auto) 0.4 K/uL (0.0-0.8) 01/01/21 05:15 Eos # (Auto) 0.0 K/uL (0.0-0.7) 01/01/21 05:15 Baso # (Auto) 0.0 K/uL (0.0-0.1) 01/01/21 05:15 Nucleated RBC % 0.0 /100WBC 01/01/21 05:15 Nucleated RBCs # 0 K/uL 01/01/21 05:15 Sodium 137 mmol/L (136-145) 01/01/21 05:15 Potassium 3.7 mmol/L (3.5-5.1) 01/01/21 05:15 Chloride 103 mmol/L (98-107) 01/01/21 05:15 Carbon Dioxide 26.6 mmol/L (21.0-32.0) 01/01/21 05:15 BUN 6 mg/dL (7.0-18.0) L 01/01/21 05:15 Creatinine 0.8 mg/dL (0.6-1.0) 01/01/21 05:15 Est Cr Clr Drug Dosing 74.15 mL/min 01/01/21 05:15 Estimated GFR (MDRD) > 60.0 ml/min 01/01/21 05:15 Glucose 95 mg/dL (74-106) 01/01/21 05:15 Hemoglobin A1c 5.3 % (4.5-6.2) 01/01/21 05:15 Calcium 9.0 mg/dL (8.5-10.1) 01/01/21 05:15 Total Bilirubin 0.4 mg/dL (0.2-1.0) 01/01/21 05:15 AST 52 IU/L (15-37) H 01/01/21 05:15 ALT 47 IU/L (14-63) 01/01/21 05:15 Alkaline Phosphatase 69 U/L (46-116) 01/01/21 05:15 Total Protein 7.4 g/dL (6.4-8.2) 01/01/21 05:15 Albumin 3.1 g/dL (3.4-5.0) L 01/01/21 05:15 Globulin 4.3 g/dL (2.6-4.0) H 01/01/21 05:15 Albumin/Globulin Ratio 0.7 (0.9-1.6) L 01/01/21 05:15 Lipase 61 U/L (73-393) L 12/31/20 22:10 Urine Color YELLOW 12/31/20 21:35 Urine Appearance CLEAR 12/31/20 21:35 Urine pH 7.0 (5.0-8.0) 12/31/20 21:35 Ur Specific [place] 1.020 (1.001-1.035) 12/31/20 21:35 Urine Protein NEGATIVE mg/dL (NEGATIVE) 12/31/20 21:35 Urine Glucose (UA) NEGATIVE mg/dL (NEGATIVE) 12/31/20 21:35 Urine Ketones NEGATIVE mg/dL (NEGATIVE) 12/31/20 21:35 Urine Occult Blood NEGATIVE (NEGATIVE) 12/31/20 21:35 Urine Nitrite NEGATIVE (NEGATIVE) 12/31/20 21:35 Urine Bilirubin NEGATIVE (NEGATIVE) 12/31/20 21:35 Urine Urobilinogen 0.2 EU/dL (<2.0) 12/31/20 21:35 Ur Leukocyte Esterase TRACE (NEGATIVE) H 12/31/20 21:35 Urine RBC 0-1 (0-2/HPF) 12/31/20 21:35 Urine WBC 1-3 (0-5/HPF) 12/31/20 21:35 Ur Epithelial Cells FEW (NONE-FEW) 12/31/20 21:35 Urine Bacteria 1+ (NEGATIVE) H 12/31/20 21:35 Urine Mucus LIGHT (NONE-MOD) 12/31/20 21:35 Urine HCG, Qual NEGATIVE (NEGATIVE) 12/31/20 21:35 SARS-CoV-2 RNA (GILDA) POSITIVE (NEGATIVE) H 01/01/21 00:10 Blood Type O POSITIVE 01/01/21 01:03 Antibody Screen NEGATIVE 01/01/21 01:03 - Allergies Allergies/Adverse Reactions: Allergies Allergy/AdvReac Type Severity Reaction Status Date / Time No Known Allergies Allergy Verified 01/01/21 07:42 - Acknowledgements Anesthesia Type Planned: General Anesthesia Pt an Appropriate Candidate for the Planned Anesthesia: Yes Alternatives and Risks of Anesthesia Discussed w Pt/Guardian: Yes Pt/Guardian Understands and Agrees with Anesthesia Plan: Yes PreAnesthesia Questionnaire - Past Health History Medical/Surgical History: Denies Medical/Surgical History HEENT History: Reports: None Cardiovascular History: Reports: None Respiratory History: Reports: None Gastrointestinal History: Reports: None Genitourinary History: Reports: None 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: Musculoskeletal History: Reports: None Neurological History: Reports: None Psychiatric History: Reports: None Endocrine/Metabolic History: Reports: None Hematologic History: Reports: None Immunologic History: Reports: None Oncologic (Cancer) History: Reports: None Dermatologic History: Reports: None - Infectious Disease History Infectious Disease History: Reports: Other (See Below) (COVID POSITIVE ASYMPTOMATIC) - Past Surgical History Head Surgeries/Procedures: Reports: None Female Surgical History: Reports: Section - SUBSTANCE USE Tobacco Use Within Last Twelve Months: No Days Per Week of Alcohol Use: 0 Recreational Drug Use History: No - HOME MEDS Home Medications: Home Meds . [No Known Home Meds] 12/31/20 [History]
[2021-01-02] MEDS: Piperacillin/Tazobactam 3.375 GM in Sodium Chloride 0.9% 50 ML IV SCH ×3 (00:50→13:21)
[2021-01-02] MEDS: Acetaminophen/oxyCODONE 325-5 MG Tab PO PRN ×2 (00:50→21:33)
[2021-01-02 05:45] LABS: BLOOD UREA NITROGEN,BUN 6 mg/dL (7.0-18.0); CARBON DIOXIDE,CO2 27.6 mmol/L (21.0-32.0); CHLORIDE,CL 104 mmol/L (98-107); GLUCOSE RANDOM 74 mg/dL (74-106); POTASSIUM,K 3.8 mmol/L (3.5-5.1); SODIUM,NA 138 mmol/L (136-145)
[2021-01-02] MEDS: Lactated Ringers 1,000 ML IV SCH (06:29)
[2021-01-02] MEDS ORDERED: HYDROmorphone 1 MG/ML Syringe IVPUSH PRN (07:30)
[2021-01-02] MEDS ORDERED: Ondansetron 4 MG/2 ML SDV ONE (08:38)
[2021-01-02] MEDS ORDERED: Glycopyrrolate 0.2 MG/ML SDV ONE (08:39)
[2021-01-02] MEDS ORDERED: Midazolam 1 MG/ML 2 ML SDV ONE (08:39)
[2021-01-02] MEDS ORDERED: Ketorolac 30 MG/ML SDV ONE (08:39)
[2021-01-02] MEDS ORDERED: fentaNYL 100 MCG/2 ML SDV ONE ×2 (08:39→08:43)
[2021-01-02] MEDS ORDERED: Rocuronium Bromide 50 MG/5 ML Syringe ONE (08:39)
[2021-01-02] MEDS ORDERED: Propofol 200 MG/20 ML SDV ONE ×2 (08:39→15:48)
[2021-01-02] MEDS ORDERED: Morphine 10 MG/ML Syringe ONE (08:44)
[2021-01-02] MEDS ORDERED: Sugammadex Sodium 200 MG/2 ML VIAL ONE (08:47)
[2021-01-02] MEDS ORDERED: Sodium Chloride 0.9% 20 ML ONE (08:51)
[2021-01-02] MEDS ORDERED: ceFAZolin 1 GM Vial ONE (08:51)
--- NOTE | 2021-01-02 12:00 | PCM.SURGPN ---
- General Info Date of Service: 01/02/21 Functional Status: Reports: Pain Controlled. Denies: New Symptoms - Review of Systems General: Reports: No Symptoms HEENT: Reports: No Symptoms Pulmonary: Reports: No Symptoms Cardiovascular: Reports: No Symptoms Gastrointestinal: Reports: No Symptoms Genitourinary: Reports: No Symptoms Musculoskeletal: Reports: No Symptoms Skin: Reports: No Symptoms - Patient Data Vitals - Most Recent: Last Vital Signs Temp 36.5 C 01/02/21 11:16 Pulse 67 01/02/21 11:16 Resp 12 01/02/21 11:16 BP 123/79 01/02/21 11:16 Pulse Ox 97 01/02/21 11:16 Weight - Most Recent: 64.864 kg I&O - Last 24 Hours: Intake & Output 01/01/21 01/02/21 01/02/21 22:59 06:59 14:59 Intake Total 1657 1383 Output Total 900 Balance 1657 483 Lab Results Last 24 Hrs: Laboratory Results - last 24 hr 01/02/21 Range/Units 05:16 Sodium 138 (136-145) mmol/L Potassium 3.8 (3.5-5.1) mmol/L Chloride 104 (98-107) mmol/L Carbon Dioxide 27.6 (21.0-32.0) mmol/L BUN 6 L (7.0-18.0) mg/dL Creatinine 0.7 (0.6-1.0) mg/dL Est Cr Clr Drug Dosing 84.74 mL/min Estimated GFR (MDRD) > 60.0 ml/min Glucose 74 (74-106) mg/dL Calcium 8.4 L (8.5-10.1) mg/dL Total Bilirubin 0.5 (0.2-1.0) mg/dL AST 87 H (15-37) IU/L ALT 87 H (14-63) IU/L Alkaline Phosphatase 101 (46-116) U/L Total Protein 6.9 (6.4-8.2) g/dL Albumin 2.8 L (3.4-5.0) g/dL Globulin 4.1 H (2.6-4.0) g/dL Albumin/Globulin Ratio 0.7 L (0.9-1.6) - Exam Lungs: Normal Respiratory Effort Cardiovascular: Regular Rate GI/Abdominal Exam: Soft, No Distention Skin: Warm, Dry, Intact Sepsis Event Note - Evaluation Sepsis Screening Result: No Definite Risk - Focused Exam Vital Signs: Vital Signs Temp Pulse Resp BP BP Pulse Ox 01/02/21 11:16 36.5 C 67 12 123/79 97 01/02/21 08:12 36.5 C 63 12 125/86 96 01/02/21 04:27 36.8 C 66 17 129/84 98 - Problem List & Annotations (1) Cholecystitis SNOMED Code(s): 86607374 Code(s): K81.9 - CHOLECYSTITIS, UNSPECIFIED Status: Acute Current Visit: Yes - Problem List Review Problem List Initiated/Reviewed/Updated: Yes - My Orders Last 24 Hours: Active Orders 24 hr Category Date Time Status Notify Provider Consults [RC] ASDIRECTED Care 01/01/21 12:58 Active Consult to Physician [CONS] Routine Cons 01/01/21 12:56 Active NPO After Midnight [Nothing per Oral After Midnight Diet 01/01/21 Dinner Active Diet] [DIET] HYDROmorphone [Dilaudid] Med 01/02/21 07:30 Active 0.5 mg IVPUSH Q1H PRN - Plan Plan (Free Text/Narrative):: The patient and I again discussed the need for a cholecystectomy. I will attempt it laparoscopically but go open should I be unable to perform it safely. I gave the patient time to ask questions. She verbalized understanding.
[2021-01-02] MEDS ORDERED: Octyl 2-Cyanoacrylate 1 Tube ONE ×2 (13:23→16:19)
[2021-01-02] MEDS ORDERED: Bupivacaine 0.5% 30 ML SDV ONE (13:23)
[2021-01-02] MEDS ORDERED: Morphine 10 MG/ML Syringe IVPUSH ONE (16:02)
--- NOTE | 2021-01-02 16:33 | PCM.OPNOTE ---
- General Post-Op/Procedure Note Date of Surgery/Procedure: 01/02/21 Operative Procedure(s): Laparoscopic cholecystectomy Findings: Severly edematous and inflamed gallbladder containing a very large stone. Pre Op Diagnosis: Acute cholecystitis due to biliary calculus Post-Op Diagnosis: same Anesthesia Technique: General ET Tube Primary Surgeon: Ct Johnson Secondary Surgeon: Ishan Baca Fluid Replacement, Intraop: 2,200 Output, Urine Amount: 350 EBL in mLs: 50 Condition: Stable Free Text/Narrative:: Intake & Output 01/02/21 01/02/21 01/02/21 06:59 14:59 22:59 Intake Total 1383 100 Output Total 900 Balance 483 100
--- NOTE | 2021-01-02 16:59 | PCM.POSTAN ---
POST ANESTHESIA ASSESSMENT - MENTAL STATUS Mental Status: Alert, Oriented - VITAL SIGNS Vital Signs: Last Vital Signs Temp 36.6 C 01/02/21 16:35 Pulse 70 01/02/21 16:55 Resp 14 01/02/21 16:55 BP 130/87 01/02/21 16:55 Pulse Ox 97 01/02/21 16:55 - RESPIRATORY Respiratory Status: Respiratory Rate WNL, Airway Patent, O2 Saturation Stable - CARDIOVASCULAR CV Status: Pulse Rate WNL, Blood Pressure Stable - GASTROINTESTINAL GI Status: No Symptoms - PAIN Pain Score: 0 - POST OP HYDRATION Hydration Status: Adequate & Stable
--- NOTE | 2021-01-02 21:38 | OR ---
SURGEON: CT GUILLORY MD DATE OF PROCEDURE: 01/02/2021 PREOPERATIVE DIAGNOSIS: Acute cholecystitis due to biliary calculus. POSTOPERATIVE DIAGNOSIS: Acute cholecystitis due to biliary calculus. PROCEDURE PERFORMED: Laparoscopic cholecystectomy. PRIMARY SURGEON: Ct Guillory MD. SECOND SURGEON: Ishan Baca MD. FLUIDS: 2200 mL of crystalloid. ANESTHESIA: General endotracheal anesthesia. ESTIMATED BLOOD LOSS: 50 mL. URINE OUTPUT: 350 mL. FINDINGS: Severely edematous and inflamed gallbladder containing a large stone. COMPLICATIONS: None. INDICATIONS: The patient is a 35-year-old female who presented to the ER with severe right upper quadrant pain. Workup revealed acute cholecystitis secondary to biliary calculus. The patient and I discussed the need for a laparoscopic possible open cholecystectomy. I explained the procedure, expected perioperative course, and the risks of bleeding, infection, or damage to surrounding structures. The patient verbalized understanding and wishes to proceed. PROCEDURE IN DETAIL: The patient was brought into the OR and placed on the OR table in the supine position. A time-out was completed verifying the patient's name, age, date of , allergies, and procedure to be performed. General endotracheal anesthesia was induced. The left arm was tucked at the patient's side, and a Barkley catheter was placed. The abdomen was prepped and draped in the usual standard fashion. I anesthetized the infraumbilical fold with 0.5% Marcaine plain. An 11 blade was used to make an incision along this fold. Cautery was used to dissect down through the layers of the subcutaneous fat. The fascia was elevated with Jose's and incised sharply with curved Kemp scissors. Entry into the abdomen was visualized and palpated digitally. A 12 mm Enrrique trocar was placed in the abdomen, and it was insufflated. A 5 mm 30-degree scope was inserted. I inspected the area underneath my initial trocar placement. No damage to surrounding structures was noted. The patient was placed into reverse Trendelenburg position and airplaned slightly to the left. 5 mm trocars were placed in the following locations under direct visualization; one in the epigastric area, one in the right flank, and one 2 fingerbreadths below the right subcostal margin in the midclavicular line. The gallbladder was thickened and distended. An aspirating needle was brought through the right flank port and used to lowery through the dome of the gallbladder. 50 mL of clearish- appearing bile was aspirated, confirming that the patient had hydrops. The needle was removed from the field. I was then able to grasp the gallbladder and elevate it anteriorly. The gallbladder itself was severely edematous. Along the proximal half of the gallbladder, I began my dissection. Using a combination of mainly blunt dissection as well as directed hook cautery, I was able to take down the edematous and swollen tissue around the cystic duct and artery. Indocyanine green had been injected preoperatively. Using infrared imaging, I was able to identify the common bile duct and the cystic duct coming off this. A bolus of this was given, verifying my cystic artery anatomy. Once my critical view was achieved, I doubly clipped and ligated the cystic duct and artery. The plane between the gallbladder and the cystic plate was severely inflamed and edematous. I created my plane at first using hook cautery. I then switched over to a Harmonic scalpel device which helped me take down the attachments safely with minimal bleeding. The gallbladder was removed from the liver bed and placed in an EndoCatch bag, and then secured outside with a 12 mm trocar. My camera was then reinserted and I irrigated my operative field. The fluid was suctioned away, and I inspected my cystic plate. There was some minor ooze. There was a small amount of bleeding. Endoscopic Avitene and Surgicel were placed within the gallbladder fossa. This helped me achieve hemostasis. Once hemostasis was achieved, I then removed my 5 mm trocars under direct visualization and allowed the abdomen to desufflate. My 12 mm trocar was removed as well. I attempted to remove my EndoCatch bag containing the gallbladder. However, the gallbladder contained a large stone. In order to facilitate removal of the gallbladder from the abdomen, I used curved Kemp scissors to open up my fascial incision inferiorly. I was then able to remove my gallbladder and pass it off the field. The fascial incision at the infraumbilical port site was then closed with interrupted 0 Vicryl sutures. The subcutaneous fat layer at this site was closed with interrupted 3-0 Vicryl sutures. The skin was closed with a running 4-0 Monocryl stitch. My 5 mm trocar sites were closed with interrupted 4-0 Monocryl sutures. Dermabond was placed over the epigastric port site and the infraumbilical port site. However, there was some oozing from the two lateral port sites. I held pressure, and once hemostasis was achieved I placed Steri-Strips over the incisions. Sterile dressings were applied. The patient tolerated the procedure well, was extubated and had no acute complications. KAREN MURRELL /[id number]
[2021-01-03] MEDS: Acetaminophen/oxyCODONE 325-5 MG Tab PO PRN (04:17)
[2021-01-03 05:58] LABS: BLOOD UREA NITROGEN,BUN 7 mg/dL (7.0-18.0); CARBON DIOXIDE,CO2 28.2 mmol/L (21.0-32.0); CHLORIDE,CL 103 mmol/L (98-107); GLUCOSE RANDOM 91 mg/dL (74-106); POTASSIUM,K 3.9 mmol/L (3.5-5.1); SODIUM,NA 136 mmol/L (136-145)
[2021-01-03 07:58] VITALS: BP 104/70; PULSE 58
--- NOTE | 2021-01-03 08:11 | PCM.POSTAN ---
POST ANESTHESIA ASSESSMENT - MENTAL STATUS Mental Status: Alert, Oriented - VITAL SIGNS Vital Signs: Last Vital Signs Temp 36.6 C 01/03/21 07:56 Pulse 58 L 01/03/21 07:56 Resp 15 01/03/21 07:56 BP 104/70 01/03/21 07:56 Pulse Ox 99 01/03/21 07:56 - RESPIRATORY Respiratory Status: Respiratory Rate WNL, Airway Patent, O2 Saturation Stable - CARDIOVASCULAR CV Status: Pulse Rate WNL, Blood Pressure Stable - GASTROINTESTINAL GI Status: No Symptoms - POST OP HYDRATION Hydration Status: Adequate & Stable
--- NOTE | 2021-01-03 08:12 | PCM.DCSUM1 ---
Discharge Summary - Hospital Course Free Text/Narrative:: Patient is a 35-year-old female who presented to the emergency room with severe right upper quadrant pain. Workup revealed a thickened and inflamed gallbladder consistent with acute cholecystitis. The patient's CT scan also showed a cystic adnexal mass along the left pelvis. She is admitted to the hospital for IV fluids IV pain control and bowel rest. Gynecology was consult. Pelvic ultrasound showed ovarian cysts as opposed to hydrosalpinx. She was told to follow-up in clinic in 4-6 weeks for follow-up for this. She's taken the next day for a laparoscopic cholecystectomy. Her gallbladder was severely inflamed and thickened. It was able to remove safely laparoscopically. The next day the patient's pain was under better control. Her vital signs are stable. Her labs had improved. She is able to tolerate a regular diet and was ambulating without difficulty. She was cleared for discharge. - Discharge Data Discharge Date: 12/27/20 Discharge Disposition: Home, Self-Care 01 Condition: Stable - Referral to Home Health Primary Care Physician: PCP None - Discharge Diagnosis/Problem(s) (1) Cholecystitis SNOMED Code(s): 01535621 ICD Code: K81.9 - CHOLECYSTITIS, UNSPECIFIED Status: Acute - Patient Summary/Data Operative Procedure(s) Performed: Laparoscopic cholecystectomy Consults: Consultations 01/01/21 12:56 Consult to Physician [CONS] Routine - Patient Instructions Diet: Regular Diet as Tolerated, Drink 8-10+ Glasses/Day Diet, Other: Avoid fatty/greasy food for one month Activity: No Lifting Over 20 Pounds (for one month ), Rest and Relax Today Activity, Other: No work for one week Driving: Do Not Drive (for one week ) Showering/Bathing: No Showering (until Wednesday morning ), No Tub Bathing/Swimming (for 2 weeks ) Wound/Incision Care: Keep Operative Site/Wound Site Clean and Dry Notify Provider of: Fever, Increased Pain, Swelling and Redness, Drainage, Nausea and/or Vomiting - Discharge Plan *PRESCRIPTION DRUG MONITORING PROGRAM REVIEWED*: Yes *COPY OF PRESCRIPTION DRUG MONITORING REPORT IN PATIENT MICHAEL: Yes Home Medications: Home Meds . [No Known Home Meds] 12/31/20 [History] Patient Handouts: COVID-19, Laparoscopic Cholecystectomy, Laparoscopic Cholecystectomy, Care After, [id number], COVID-19: How to Protect Yourself and Others - CDC, COVID-19: Quarantine vs. Isolation - [facility] Forms: ED Department Discharge Referrals: Yuniel Oakes MD [Physician] - 01/29/21 8:[address] Johnson MD [Physician] - 01/17/21 10:30 am Lyubov Carrera PA [Physician Splitting Machine Operator] - 01/15/21 3:30 pm - Discharge Summary/Plan Comment DC Time >30 min.: No - General Info Date of Service: 01/06/21 Functional Status: Reports: Pain Controlled, Tolerating Diet, Ambulating, Urinating - Review of Systems General: Reports: No Symptoms HEENT: Reports: No Symptoms Pulmonary: Reports: No Symptoms Cardiovascular: Reports: No Symptoms Gastrointestinal: Reports: No Symptoms Genitourinary: Reports: No Symptoms Musculoskeletal: Reports: No Symptoms Skin: Reports: No Symptoms - Patient Data Vitals - Most Recent: Last Vital Signs Temp 36.6 C 01/03/21 07:56 Pulse 58 L 01/03/21 07:56 Resp 15 01/03/21 07:56 BP 104/70 01/03/21 07:56 Pulse Ox 99 01/03/21 07:56 Weight - Most Recent: 64.864 kg I&O - Last 24 hours: Intake & Output 01/02/21 01/03/21 01/03/21 22:59 06:59 14:59 Intake Total 5200 340 Output Total 350 750 Balance 4850 -410 Lab Results - Last 24 hrs: Laboratory Results - last 24 hr 01/03/21 01/03/21 Range/Units 05:28 05:28 WBC 4.78 (4.0-11.0) K/uL RBC 4.31 (4.30-5.90) M/uL Hgb 10.9 L (12.0-16.0) g/dL Hct 33.6 L (36.0-46.0) % MCV 78.0 L (80.0-98.0) fL MCH 25.3 L (27.0-32.0) pg MCHC 32.4 (31.0-37.0) g/dL RDW Std Deviation 43.0 (28.0-62.0) fl RDW Coeff of Klaus 15 (11.0-15.0) % Plt Count 195 (150-400) K/uL MPV 11.60 (7.40-12.00) fL Nucleated RBC % 0.0 /100WBC Nucleated RBCs # 0 K/uL Sodium 136 (136-145) mmol/L Potassium 3.9 (3.5-5.1) mmol/L Chloride 103 (98-107) mmol/L Carbon Dioxide 28.2 (21.0-32.0) mmol/L BUN 7 (7.0-18.0) mg/dL Creatinine 0.6 (0.6-1.0) mg/dL Est Cr Clr Drug Dosing 98.86 mL/min Estimated GFR (MDRD) > 60.0 ml/min Glucose 91 (74-106) mg/dL Calcium 8.2 L (8.5-10.1) mg/dL Total Bilirubin 0.2 (0.2-1.0) mg/dL AST 42 H (15-37) IU/L ALT 71 H (14-63) IU/L Alkaline Phosphatase 96 (46-116) U/L Total Protein 6.9 (6.4-8.2) g/dL Albumin 2.5 L (3.4-5.0) g/dL Globulin 4.4 H (2.6-4.0) g/dL Albumin/Globulin Ratio 0.6 L (0.9-1.6) Med Orders - Current: Current Medications Lactated Ringer's (Ringers, Lactated) 1,000 mls @ 999 mls/hr IV ASDIRECTED [facility] Last Admin: 12/31/20 22:28 Dose: 999 mls/hr Documented by: Discontinued Medications Morphine Sulfate (Morphine 4 Mg/Ml Syringe) 4 mg IVPUSH ONETIME ONE Stop: 12/31/20 22:14 Last Admin: 12/31/20 22:28 Dose: 4 mg Documented by: - Exam General: Reports: Alert, Oriented HEENT: Reports: Pupils Equal, Pupils Reactive Lungs: Reports: Clear to Auscultation, Normal Respiratory Effort Cardiovascular: Reports: Regular Rate, Regular Rhythm GI/Abdominal Exam: Soft, Non-Tender, No Distention, No Mass Back Exam: Reports: Normal Inspection Extremities: Normal Inspection Skin: Reports: Warm, Dry, Intact Wound/Incisions: Reports: Healing Well Psy/Mental Status: Reports: Alert, Normal Affect
== END 2021-01-03 10:40 | disposition home or self-care (01) ==
LOC: MW.ED 21:28 → MW.MS 01-01 01:23
PROVIDERS: ADMIT Surgery; ATTEND Surgery
DX: K80.66 Calculus of gallbladder and bile duct with acute and chronic cholecystitis without obstruction (principal); U07.1 COVID-19
CPT/HCPCS: 36415; 47562; 74177; 76705; 76856; 80053; 81001; 81025; 83036; 83690; 85025; 85027; 86850; 86900; 86901; 87635; 88304; 96365; 96375; 96376; 99285; A9270; G0378; J0131; J0690; J1170; J1885; J2250; J2270; J2405; J2543; J2704; J3010; J3490; J7120; Q9967; 99284; U0002

== ENCOUNTER 2022-06-11 22:36 | Emergency (ER) | payer SELFPAY ==
[2022-06-11 23:19] VITALS: BP 129/88; PULSE 75
== END 2022-06-12 00:34 | disposition home or self-care (01) ==
LOC: MW.ED 22:36
DX: M54.50 Low back pain, unspecified (principal)
CPT/HCPCS: 81001; 81025; 99282; 99284

== ENCOUNTER 2022-09-02 12:01 | Emergency (ER) | payer SELFPAY ==
[2022-09-02] MEDS ORDERED: Ketorolac 10 MG Tab PO ONE (12:17)
[2022-09-02] MEDS ORDERED: Diazepam 5 MG Tab PO ONE (12:17)
[2022-09-02 14:07] VITALS: BP 119/84; PULSE 93
== END 2022-09-02 14:08 | disposition home or self-care (01) ==
LOC: MW.ED 12:01
DX: M54.50 Low back pain, unspecified (principal); M54.6 Pain in thoracic spine; R00.0 Tachycardia, unspecified; Z98.890 Other specified postprocedural states
CPT/HCPCS: 81003; 81025; 99283; A9270

== ENCOUNTER 2022-11-23 08:41 | Emergency (ER) | payer OTHER ==
[2022-11-23 10:43] VITALS: BP 126/86; PULSE 80
== END 2022-11-23 10:42 | disposition home or self-care (01) ==
LOC: MW.ED 08:41
DX: S62.630A Displaced fracture of distal phalanx of right index finger, initial encounter for closed fracture (principal); W23.0XXA Caught, crushed, jammed, or pinched between moving objects, initial encounter; Y92.218 Other school as the place of occurrence of the external cause
CPT/HCPCS: 73140-26-F6; 73140-F6; 99283

== ENCOUNTER 2023-12-18 15:58 | Emergency (ER) | payer SELFPAY ==
[2023-12-18 16:53] LABS: CORONAVIRUS COVID-19 NAA NEGATIVE (NEGATIVE); INFLUENZA A NAA NEGATIVE (NEGATIVE); INFLUENZA B NAA NEGATIVE (NEGATIVE)
[2023-12-18 17:12] VITALS: BP 124/84; PULSE 90
== END 2023-12-18 17:13 | disposition home or self-care (01) ==
LOC: MW.ED 15:58
DX: J02.9 Acute pharyngitis, unspecified (principal)
CPT/HCPCS: 0240U; 99283

== ENCOUNTER 2024-09-20 15:49 | Emergency (ER) | payer SELFPAY ==
[2024-09-20] MEDS: Ibuprofen 600 MG Tab PO ONE (16:47)
[2024-09-20 17:17] VITALS: BP 158/75; PULSE 70
== END 2024-09-20 17:16 | disposition home or self-care (01) ==
LOC: MW.ED 15:49
DX: S66.911A Strain of unspecified muscle, fascia and tendon at wrist and hand level, right hand, initial encounter (principal); S50.02XA Contusion of left elbow, initial encounter; M54.50 Low back pain, unspecified; Z75.8 Other problems related to medical facilities and other health care; Z90.49 Acquired absence of other specified parts of digestive tract; W01.0XXA Fall on same level from slipping, tripping and stumbling without subsequent striking against object, initial encounter; Y99.0 Civilian activity done for income or pay; Y92.89 Other specified places as the place of occurrence of the external cause
CPT/HCPCS: 99283; A9270